=== PATIENT | male | born 1955 | race Caucasian/White ===

== ENCOUNTER → 2017-07-11 | Outpatient (CLI) | payer OTHER ==
[2017-07-11 19:15] LABS: Gliadin AB IgA, Deaminated NEGATIVE (NEGATIVE); Tis Transglutaminase IgA Unit <0.5 AI
[2017-07-11 21:03] LABS: Gliadin AB IgG, Deaminated NEGATIVE (NEGATIVE); Gliadin AB IgG, Unit <0.4 U/mL; Tis Transglutaminase IgG Unit <0.8 U/mL
== END | disposition home or self-care (01) ==
LOC: LABWHC1 13:39
PROVIDERS: ATTEND Allergy & Immunology
DX: K52.9 Noninfective gastroenteritis and colitis, unspecified (principal)
CPT/HCPCS: 36415; 82784; 83516

== ENCOUNTER → 2017-07-19 | Outpatient (CLI) | payer OTHER ==
[2017-07-19 15:52] LABS: Basophils % (A) 0 %; CH 31.7; CHCM 33.5; Eosinophils % (A) 1 %; HCT 44.1 % (39.0-53.0); HDW 2.29; HGB 14.3 gm/dL (13.0-17.5); Luc % (Auto) 2; Lymphocytes # (A) 2.1 k/uL (1.0-4.8); Lymphocytes % (A) 46 %; MCH 30.8 pg (25.0-35.0); MCHC 32.5 g/dL (31.0-37.0); MCV 94.8 fL (80.0-100.0); Mean Platelet Volume 6.7; Monocytes # (A) 0.3 k/uL (0-1.0); Monocytes % (A) 6 %; Neutrophils # (A) 2.1 k/uL (1.3-7.7); Neutrophils % (A) 45 %; RBC 4.65 m/uL (4.30-5.90); RDW 12.8 % (11.5-15.5); WBC 4.7 k/uL (3.8-10.6); WBC (Perox) 4.58
[2017-07-19 16:03] LABS: Appearance,Urine Clear (Clear); Bilirubin,Urine Negative (Negative); Glucose,Urine (UA) 3+ (Negative); Ketones,Urine Negative (Negative); Leukocyte Esterase,Urine Negative (Negative); Nitrite,Urine Negative (Negative); Protein,Urine Negative (Negative); Specific Gravity,Urine 1.024 (1.001-1.035); UA Billing (MACRO vs. MICRO) CHEM; Urobilinogen,Urine <2.0 mg/dL (<2.0)
== END | disposition home or self-care (01) ==
LOC: LABWHC1 14:59
PROVIDERS: ATTEND Allergy & Immunology
DX: R19.7 Diarrhea, unspecified (principal)
CPT/HCPCS: 36415; 81003; 82784; 82785; 84165; 85025; 86334

== ENCOUNTER 2017-08-16 10:31 | Day surgery (SDC) | payer OTHER ==
[2017-08-15 08:27] VITALS: BMI 24.3
[~2017-08-16 10:31] MED LIST: LACTATED RINGERS 1,000 ML IV SCH
[2017-08-16 10:53] VITALS: TEMP 97.6
[2017-08-16] MEDS ORDERED: LIDOCAINE 1% 20 ML VIAL (10MG/ML) FOR IV START INTRADERMA ONE (11:01)
[2017-08-16 11:08] LABS: Glucose,Whole Blood 153 mg/dL (75-99)
[2017-08-16] MEDS ORDERED: LIDOCAINE 1% INJ 10MG/ML (20 ML MDV) ONE (11:30)
[2017-08-16] MEDS ORDERED: PROPOFOL 10 MG/ML 20 ML VIAL IV ONE (11:30)
--- NOTE | 2017-08-16 11:42 | P.PCN ---
Date of Procedure: 08/16/17 Procedure(s) Performed: BRIEF HISTORY: Patient is a 62-year-old, pleasant, white male, scheduled for an upper endoscopy as a part of evaluation of chronic diarrhea for the last 6 months duration. He was diagnosed with cryptosporidiosis about 4 months ago and was treated with the antibiotics and his symptoms slowly improved. However still having diarrhea with loose bowel movements anywhere from 3-4 a day and hence repeat stool studies were done which were negative he did have a colonoscopy done in [facility] in July 2079 was normal. Because of the persistent symptoms he scheduled for an upper endoscopy with small bowel biopsies to evaluate for small bowel pathology.. PROCEDURE PERFORMED: Esophagogastroduodenoscopy with biopsy. PREOPRATIVE DIAGNOSIS: Chronic diarrhea. IV sedation per anesthesia. PROCEDURE: After informed consent was obtained, the patient was brought into the endoscopy unit. IV sedation was administered by Anesthesia under continuous monitoring. Initially the Olympus GIF-140 video endoscope was inserted into the mouth. Esophagus intubated without any difficulty. It was gradually advanced into the stomach and duodenum and carefully examined. The bulb and the second part of the duodenum appeared normal. Multiple biopsies were done from the duodenum to rule out celiac disease. The scope at this time was withdrawn to the stomach, adequately insufflated with air, and upon careful examination, mucosa of the antrum, had mild patchy areas of erythema and biopsies were done from this area. The body, cardia and the fundus appeared normal. The scope was then withdrawn into the esophagus. The GE junction was located at 39 cm from the incisors. The esophagus appeared normal. There were no erosions or ulcerations seen and the patient tolerated the procedure well. IMPRESSION: 1. Mild antral gastritis. 2. Small hiatal hernia. RECOMMENDATIONS: The findings of this examination were discussed with the patient as well as his family. He was advised to follow with biopsy results. He'll be seen in the office in 2-3 weeks. In the meantime he will continue with Imodium as needed..
[2017-08-16 12:29] VITALS: BP 131/69; PULSE 71; RESP 15
== END 2017-08-16 12:32 | disposition home or self-care (01) ==
LOC: ORWHC2ENDO 10:31
PROVIDERS: ATTEND Internal Medicine Gastroenterology
DX: K29.50 Unspecified chronic gastritis without bleeding (principal); K52.9 Noninfective gastroenteritis and colitis, unspecified; K44.9 Diaphragmatic hernia without obstruction or gangrene; E78.5 Hyperlipidemia, unspecified; E11.9 Type 2 diabetes mellitus without complications; Z79.899 Other long term (current) drug therapy; E07.9 Disorder of thyroid, unspecified; Z79.82 Long term (current) use of aspirin; Z79.84 Long term (current) use of oral hypoglycemic drugs
CPT/HCPCS: 88305; 88342; 43239; J2001; J2704

== ENCOUNTER → 2018-05-28 | Outpatient (CLI) | payer OTHER ==
[2018-05-28 09:03] LABS: Cholesterol 124 mg/dL (<200); HDL Cholesterol 35 mg/dL (40-60); LDL Cholesterol,Calculated 37 mg/dL (0-99); Triglycerides 258 mg/dL (<150)
[2018-05-28 19:43] LABS: Hemoglobin A1C 8.4 % (4.0-6.0)
== END | disposition home or self-care (01) ==
LOC: LABWHC1 07:58
PROVIDERS: ATTEND General Practice
DX: E11.9 Type 2 diabetes mellitus without complications (principal); E78.5 Hyperlipidemia, unspecified
CPT/HCPCS: 36415; 80061; 83036

== ENCOUNTER 2019-03-28 12:04 | Observation (INO) | payer OTHER ==
--- NOTE | 2019-03-28 12:53 | ED ---
General Adult HPI - General Chief complaint: Neuro Symptoms/Deficit Stated complaint: Rt side numbness Time Seen by Provider: 03/28/19 12:22 Source: patient, family, RN notes reviewed Mode of arrival: ambulatory Limitations: no limitations - History of Present Illness Initial comments: Chief complaint history of present illness this is a 63-year-old male here for complaint of pain and funny feeling or numbness from the right side of his neck down his right arm to his right side of his chest. This started at approximately 10 AM. Initially he had difficulty pinching his fingers or picking something up at his since resolved. He is able to do anything with good pharmaceutical scientist at this time. Does have discomfort when he moves his neck or moves her shoulder. Denies any injury or trauma. Does have a past history of cervical disc disease. Never had any strokes or TIAs in the past. States his blood pressure and diabetes may be out of control. - Related Data Home Medications Medication Instructions Recorded Confirmed Escitalopram [Lexapro] 10 mg PO DAILY 08/15/17 03/28/19 Ezetimibe/Simvastatin [Vytorin 1 tab PO DAILY 08/15/17 03/28/19 10-20 mg Tablet] Glimepiride [Amaryl] 2 mg PO DAILY 08/15/17 03/28/19 Levothyroxine Sodium [Synthroid] 50 mcg PO DAILY 08/15/17 03/28/19 Multivitamins, Thera [Multivitamin 1 tab PO DAILY 08/15/17 03/28/19 (formulary)] metFORMIN HCL 1,000 mg PO BID 08/15/17 03/28/19 traZODone HCL 50 mg PO HS 08/15/17 03/28/19 ALPRAZolam [Xanax] 0.5 mg PO HS PRN 03/28/19 03/28/19 Cholecalciferol [Vitamin D3 (25 1,000 unit PO DAILY 03/28/19 03/28/19 Mcg = 1000 Iu)] Cinnamon Bark [Cinnamon] 500 mg PO DAILY 03/28/19 03/28/19 Dicyclomine [Bentyl] 10 mg PO TID PRN 03/28/19 03/28/19 Loratadine [Claritin] 10 mg PO DAILY 03/28/19 03/28/19 Meclizine [Antivert] 6.25 mg PO DAILY PRN 03/28/19 03/28/19 Allergies Allergy/AdvReac Type Severity Reaction Status Date / Time No Known Allergies Allergy Verified 03/28/19 12:57 Review of Systems ROS Statement: Those systems with pertinent positive or pertinent negative responses have been documented in the HPI. Review of systems; patient denies headache at this time though he did have discomfort to the right side of his face denies any visual acuity changes he has discomfort with movement of the right side of his neck. States he has discomfort with movement of his right shoulder and arm. A funny sensation but he has full range of motion good pharmaceutical scientist bilaterally. This is significantly better than it was at 10 AM when he first noticed it. Patient denies any chest pain or shortness of breath no GI/ complaints or problems. All systems are reviewed. Past medical problems significant for elevated blood sugar which he takes pills only. Patient's had cervical spine surgery twice. Denies any family history for any cancers. Denies any ALLERGIES, nonsmoker rarely drinks alcohol. ROS Other: All systems not noted in ROS Statement are negative. Past Medical History Past Medical History: Diabetes Mellitus, Hyperlipidemia, Thyroid Disorder Additional Past Medical History / Comment(s): diarrhea and stomach cramps, History of Any Multi-Drug Resistant Organisms: None Reported Additional Past Surgical History / Comment(s): deviated septus, neck fusion Past Anesthesia/Blood Transfusion Reactions: Motion Sickness Smoking Status: Never smoker - Past Family History Mother Family Medical History: No Reported History General Exam - General Exam Comments Initial Comments: General: The patient is awake and alert, here because he had pain on the right arm and the right side of his neck and TIA type symptoms which have resolved over the past 2 to 3 hours. Patient's vital signs Eye: Pupils are equal, round and reactive to light, extra-ocular movements are intact; there is normal conjunctiva bilaterally. No signs of icterus. Ears, nose, mouth and throat: There are moist mucous membranes and no oral lesions. Neck: has chronic right-sided neck pain. Past history of 2 surgeries for disc disease. Cardiovascular: There is a regular rate and rhythm. No murmur, rub or gallop is appreciated. Respiratory: Lungs are clear to auscultation, respirations are non-labored, breath sounds are equal. No wheezes, stridor, rales, or rhonchi. Gastrointestinal: Soft, non-distended, non-tender abdomen without masses or organomegaly noted. There is no rebound or guarding present. No CVA tenderness. Bowel sounds are unremarkable. Back: There is no tenderness to palpation in the midline. There is no obvious defor mity. No rashes noted. Musculoskeletal: Normal ROM, no tenderness, There is no pedal edema. There is no calf tenderness or swelling. Sensation intact. Pulses equal bilaterally 2+. Neurological: CN II-XII intact, There are no obvious motor or sensory deficits. Coordination appears grossly intact. Speech is normal. Neuro intact. Slight problem with fingertip to nose with his right index finger. Stands without difficulty. No drift equal project analyst bilaterally Skin: Skin is warm and dry and no rashes or lesions are noted. Psychiatric: Cooperative, appropriate mood & affect, normal judgment. Limitations: no limitations Course Vital Signs 03/28/19 12:33 Temperature 97.9 F Pulse Rate 82 Respiratory 18 Rate Blood Pressure 159/84 O2 Sat by Pulse 98 Oximetry EKG Findings - EKG Comments: EKG Findings:: EKG was done and reviewed at 1311 showing normal sinus rhythm with nonspecific ST-T wave changes no acute ST elevation. Rate 67 LA interval was 186 QRS S was [address] Callahan Medical Decision Making - Medical Decision Making Medical decision making; is a 63-year-old male here with a complaint of acute onset of pain and weakness to his right arm noticed at 10 AM. It is 99% gone at this time except for pain. Pain increases with movement of his neck. No injuries lately. By does have a long history of cervical spine problems. Chest x-ray was done and reviewed by radiologist his impression is no evidence for infiltrate. No evidence for atelectasis. Scattered senescent parenchymal changes noted. Hyperinflation compatible with COPD. Heart size is stable. As read by Dr. Braden Laboratory white count of 5.4 hemoglobin 15 hematocrit 45 with potassium 4.5. INR 0.9. Blood glucose 161, troponin less than 0.012. Kidney function within normal limits. CT of the brain and cervical spine was done and reviewed by radiologist his impression is #1 there is no acute fracture or dislocation evident in the cervical spine. #2 no acute intracranial hemorrhage, mass effect, or midline shift seen. As read by Dr. Ivy The patient's condition continues to improve significantly. Minimal to no numbness. No evidence of any ataxia. No headache. The case discussed Dr. Koch, on-call hospitalist. Patient admitted his service with consultation from neurology. The patient was given aspirin while in emergency room. The case discussed with Dr. Koch, on-call hospitalist patient be admitted to his service with consultation from neurology. The patient did receive aspirin while in emergency room - Lab Data Result diagrams: 03/28/19 13:00 03/28/19 13:00 Lab Results 03/28/19 03/28/19 03/28/19 Range/Units 13:00 13:00 13:00 WBC 5.4 (3.8-10.6) k/uL RBC 4.78 (4.30-5.90) m/uL Hgb 15.4 (13.0-17.5) gm/dL Hct 45.0 (39.0-53.0) % MCV 94.2 (80.0-100.0) fL MCH 32.2 (25.0-35.0) pg MCHC 34.2 (31.0-37.0) g/dL RDW 13.1 (11.5-15.5) % Plt Count 243 (150-450) k/uL Neutrophils % 47 % Lymphocytes % 40 % Monocytes % 6 % Eosinophils % 2 % Basophils % 1 % Neutrophils # 2.6 (1.3-7.7) k/uL Lymphocytes # 2.2 (1.0-4.8) k/uL Monocytes # 0.3 (0-1.0) k/uL Eosinophils # 0.1 (0-0.7) k/uL Basophils # 0.0 (0-0.2) k/uL PT 10.1 (9.0-12.0) sec INR 0.9 (<1.2) APTT 22.0 (22.0-30.0) sec Sodium 139 (137-145) mmol/L Potassium 4.5 (3.5-5.1) mmol/L Chloride 101 (98-107) mmol/L Carbon Dioxide 27 (22-30) mmol/L Anion Gap 11 mmol/L BUN 18 (9-20) mg/dL Creatinine 0.92 (0.66-1.25) mg/dL Est GFR (CKD-EPI)AfAm >90 (>60 ml/min/1.73 sqM) Est GFR (CKD-EPI)NonAf 88 (>60 ml/min/1.73 sqM) Glucose 161 H (74-99) mg/dL Calcium 9.9 (8.4-10.2) mg/dL Total Bilirubin 0.4 (0.2-1.3) mg/dL AST 25 (17-59) U/L ALT 37 (21-72) U/L Alkaline Phosphatase 42 (38-126) U/L Troponin I (0.000-0.034) ng/mL Total Protein 7.4 (6.3-8.2) g/dL Albumin 4.4 (3.5-5.0) g/dL 03/28/19 Range/Units 13:00 WBC (3.8-10.6) k/uL RBC (4.30-5.90) m/uL Hgb (13.0-17.5) gm/dL Hct (39.0-53.0) % MCV (80.0-100.0) fL MCH (25.0-35.0) pg MCHC (31.0-37.0) g/dL RDW (11.5-15.5) % Plt Count (150-450) k/uL Neutrophils % % Lymphocytes % % Monocytes % % Eosinophils % % Basophils % % Neutrophils # (1.3-7.7) k/uL Lymphocytes # (1.0-4.8) k/uL Monocytes # (0-1.0) k/uL Eosinophils # (0-0.7) k/uL Basophils # (0-0.2) k/uL PT (9.0-12.0) sec INR (<1.2) APTT (22.0-30.0) sec Sodium (137-145) mmol/L Potassium (3.5-5.1) mmol/L Chloride (98-107) mmol/L Carbon Dioxide (22-30) mmol/L Anion Gap mmol/L BUN (9-20) mg/dL Creatinine (0.66-1.25) mg/dL Est GFR (CKD-EPI)AfAm (>60 ml/min/1.73 sqM) Est GFR (CKD-EPI)NonAf (>60 ml/min/1.73 sqM) Glucose (74-99) mg/dL Calcium (8.4-10.2) mg/dL Total Bilirubin (0.2-1.3) mg/dL AST (17-59) U/L ALT (21-72) U/L Alkaline Phosphatase (38-126) U/L Troponin I <0.012 (0.000-0.034) ng/mL Total Protein (6.3-8.2) g/dL Albumin (3.5-5.0) g/dL Disposition Clinical Impression: Transient ischemic attack Disposition: ADMITTED IP TO THIS HOSP Condition: Fair Referrals: James Maria MD [Primary Care Provider] - 1-2 days
[2019-03-28 13:30] LABS: Basophils % (A) 1 %; Eosinophils # (A) 0.1 k/uL (0-0.7); Eosinophils % (A) 2 %; HGB 15.4 gm/dL (13.0-17.5); Lymphocytes # (A) 2.2 k/uL (1.0-4.8); Lymphocytes % (A) 40 %; MCH 32.2 pg (25.0-35.0); MCHC 34.2 g/dL (31.0-37.0); MCV 94.2 fL (80.0-100.0); Mean Platelet Volume 6.6; Monocytes # (A) 0.3 k/uL (0-1.0); Monocytes % (A) 6 %; Neutrophils # (A) 2.6 k/uL (1.3-7.7); Neutrophils % (A) 47 %; Platelet Count 243 k/uL (150-450); RBC 4.78 m/uL (4.30-5.90); RDW 13.1 % (11.5-15.5); WBC 5.4 k/uL (3.8-10.6)
[2019-03-28 13:41] LABS: INR 0.9 (<1.2); Prothrombin Time 10.1 sec (9.0-12.0)
--- NOTE | 2019-03-28 14:03 | XR ---
EXAMINATION TYPE: XR chest 2V DATE OF EXAM: 03/28/2019 COMPARISON: NONE HISTORY: Shortness of breath TECHNIQUE: Frontal and lateral views of the chest are obtained. FINDINGS: Scattered senescent parenchymal changes noted. Hyperinflation compatible with COPD. No evidence for infiltrate. No evidence for atelectasis. Heart size is stable. Mediastinal structures are stable and grossly unremarkable. No evidence for hilar prominence. Degenerative changes dorsal spine. IMPRESSION: 1. No evidence for acute pulmonary disease.
[2019-03-28 14:29] LABS: ALT 37 U/L (21-72); AST 25 U/L (17-59); African American GFR (CKD) >90 (>60 ml/min/1.73 sqM); Albumin 4.4 g/dL (3.5-5.0); Alkaline Phosphatase 42 U/L (38-126); Anion Gap 11 mmol/L; Blood Urea Nitrogen 18 mg/dL (9-20); Calcium 9.9 mg/dL (8.4-10.2); Carbon Dioxide 27 mmol/L (22-30); Chloride 101 mmol/L (98-107); Glucose 161 mg/dL (74-99); Potassium 4.5 mmol/L (3.5-5.1); Sodium 139 mmol/L (137-145); Total Bilirubin 0.4 mg/dL (0.2-1.3); Total Protein 7.4 g/dL (6.3-8.2)
[2019-03-28] MEDS ORDERED: ASPIRIN 325 MG TAB PO STA (15:16)
--- NOTE | 2019-03-28 15:32 | CT ---
EXAMINATION TYPE: CT brain mark wells DATE OF EXAM: 03/28/2019 COMPARISON: HISTORY: Right sided numbness and pain today. CT DLP: 1461.6 mGycm Automated exposure control for dose reduction was used. TECHNIQUE: CT scan of the head and cervical spine are performed without contrast. FINDINGS: There is no acute intracranial hemorrhage, mass effect, or midline shift identified. The ventricles and sulci are within normal limits in size. The globes are intact and the visualized sin uses are clear. Cervical spine is visualized in its entirety from C1 through upper thoracic levels and demonstrates s atisfactory alignment without evidence of acute fracture or dislocation. Prevertebral soft tissue ap pears within normal limits. Patient is status post anterior cervical fusion and discectomy at C5-6, e xtensive endplate irregularities present at C5-6. There is anterolisthesis grade 1 C3-4, retrolisthes is grade 1 C5-6. Multilevel spondylosis. Loss of disc height present at C4-5 where there is likely be en prior fusion and also loss of disc height C6-7 C5-6. The C1-C2 articulation is unremarkable. The re is multilevel facet arthropathy, foraminal encroachment due to uncovertebral joint hypertrophy. IMPRESSION: 1. There is no acute fracture or dislocation evident in the cervical spine. 2. No acute intracranial hemorrhage, mass effect, or midline shift is seen.
[2019-03-28] MEDS ORDERED: ACETAMINOPHEN TAB 325 MG TAB PO PRN (16:05)
[2019-03-28] MEDS ORDERED: NALOXONE 0.4 MG/ML 1 ML VIAL IV PRN (16:05)
[2019-03-28] MEDS ORDERED: MECLIZINE 12.5 MG TAB PO PRN (16:10)
[2019-03-28] MEDS ORDERED: ALPRAZolam 0.5 MG TAB PO PRN (16:10)
[2019-03-28] MEDS ORDERED: DICYCLOMINE 10 MG CAP PO PRN (16:10)
[2019-03-28] MEDS: SODIUM CHLORIDE 0.9% 1,000 ML IV SCH (17:09)
--- NOTE | 2019-03-28 17:50 | P.CNNES ---
History of Present Illness Consult date: 03/28/19 Requesting physician: Yobani Callahan Reason for Consult: TIA Chief complaint: Right facial, arm and truncal numbness and hand clumsiness History of Present Illness: This is a 63 RH male whose vascular risk factors are advancing age, HTN, DM and HL. He also has chronic neck pain s/p multiple surgeries. This morning around 10am, he had abrupt onset of right lower facial, neck, arm, chest and back nu mbness. He also developed clumsiness while using his right fingers that are his dominant side. His symptoms did improve over time, but he is still numb in the same areas. His manual dexterity has improved. Denies head/neck trauma, cervical radicular symptoms or Lhermitte's. Does not normally take any antiplatelets or anticoagulants. Review of Systems 14-point ROS performed and as per HPI. Neurologically, patient denies decreased level or loss of consciousness, headache, seizure, changes in vision, diplopia, amaurosis, changes in hearing, facial droop, ptosis, vertigo, hearing loss, tinnitus, dysarthria, dysphagia, aphasia, other focal numbness/weakness not mentioned above, tremors, bowel/bladder incontinence or ataxia. Past Medical History Past Medical History: Diabetes Mellitus, Hyperlipidemia, Thyroid Disorder Additional Past Medical History / Comment(s): diarrhea and stomach cramps, History of Any Multi-Drug Resistant Organisms: None Reported Additional Past Surgical History / Comment(s): deviated septus, neck fusion Past Anesthesia/Blood Transfusion Reactions: Motion Sickness Smoking Status: Never smoker - Past Family History Mother Family Medical History: No Reported History Medications and Allergies Home Medications Medication Instructions Recorded Confirmed Type Escitalopram [Lexapro] 10 mg PO DAILY 08/15/17 03/28/19 History Ezetimibe/Simvastatin [Vytorin 1 tab PO DAILY 08/15/17 03/28/19 History 10-20 mg Tablet] Glimepiride [Amaryl] 2 mg PO DAILY 08/15/17 03/28/19 History Levothyroxine Sodium [Synthroid] 50 mcg PO DAILY 08/15/17 03/28/19 History Multivitamins, Thera [Multivitamin 1 tab PO DAILY 08/15/17 03/28/19 History (formulary)] metFORMIN HCL 1,000 mg PO BID 08/15/17 03/28/19 History traZODone HCL 50 mg PO HS 08/15/17 03/28/19 History ALPRAZolam [Xanax] 0.5 mg PO HS PRN 03/28/19 03/28/19 History Cholecalciferol [Vitamin D3 (25 1,000 unit PO DAILY 03/28/19 03/28/19 History Mcg = 1000 Iu)] Cinnamon Bark [Cinnamon] 500 mg PO DAILY 03/28/19 03/28/19 History Dicyclomine [Bentyl] 10 mg PO TID PRN 03/28/19 03/28/19 History Loratadine [Claritin] 10 mg PO DAILY 03/28/19 03/28/19 History Meclizine [Antivert] 6.25 mg PO DAILY PRN 03/28/19 03/28/19 History Allergies Allergy/AdvReac Type Severity Reaction Status Date / Time No Known Allergies Allergy Verified 03/28/19 12:57 Physical Examination - Vital Signs Vital Signs: Vital Signs Temp Pulse Resp BP Pulse Ox 03/28/19 17:17 83 18 129/80 97 03/28/19 12:33 97.9 F 82 18 159/84 98 Intake and Output 03/28/19 03/28/19 03/28/19 06:59 14:59 22:59 Other: Weight 77.111 kg Gen NAD Pleasant and cooperative HEENT NCAT Sclera without icterus O/P clear Neck Supple No carotid bruit Cor RRR no m/r/g Lungs CTAB Abd Soft NTND +BS Ext Warm to touch No edema Neuro MS A+Ox4 Normal fluency Able to follow all commands CN PERRL VFF no APD EOMI no nystagmus or ROMULO Right V2-3 decreased to LT No facial asymmetry Masseter's symmetric Hearing intact to normal voice bilaterally Speech not dysarthric Equal elevation of palate Tongue midline Sym shrug and SCM bilaterally Motor Normal bulk/tone No pronator or leg drift No tremors Strength 5/5 sym throughout Sens Diminished to LT/temp in RUE and right trunk No neglect or extinction Coord Sensory ataxia on FTN on the right; normal on the left DTRs 2+/4 sym throughout Toes downgoing bilaterally No clonus at achilles Gait Deferred NIHSS 2- 1 for sensation and 1 for limb ataxia Results CT Head wo cont 03/28/19. Nil acute. CT C-spine wo cont 03/28/19. No acute fracture of the cervical spine. I have reviewed neuroimages myself. - Laboratory Findings CBC and BMP: 03/28/19 13:00 03/28/19 13:00 Abnormal Lab Findings: Abnormal Labs 03/28/19 13:00 Glucose 161 H Assessment and Plan Assessment: Right facial/UE/truncal numbness and right hand clumsiness- suspect lacunar-type ischemic infarct, possibly in the left thalamus. Chronic neck pain- would not be able explain his entire distribution of numbness based on localization. Vascular risk factors- HTN, DM, HL Plan: -ASA 325mg po qd -Statin therapy -Permissive HTN <220/120 until MRI results known and based on clinical course -MRI Brain -CTA Head/Neck -TTE -Stroke education given -PT/OT/SP per protocol -DVT prophylaxis: heparin SC -d/w patient/family at bedside in detail. All questions answered. Thank you for this consultation. Neurology will be available again on 03/31/19 at 8am. Time with Patient: Greater than 30 (Time spent in direct patient care, greater than 50% of which was spent in [id number] counseling and coordination of care: 70 minutes.)
[2019-03-28] MEDS: metFORMIN 500 MG TAB PO SCH (20:12)
[2019-03-28] MEDS ORDERED: traZODone HCL 50 MG TAB PO SCH (21:00)
[2019-03-28 22:06] LABS: Glucose,Whole Blood 101 mg/dL (75-99)
[2019-03-28 22:13] VITALS: BMI 25.9
--- NOTE | 2019-03-28 23:25 | CT ---
EXAMINATION TYPE: CT angio head neck with contrast and with 3-D reconstruction renderings DATE OF EXAM: 03/28/2019 HISTORY: numbness to right side of body, weakness COMPARISON: CT 03/28/2019 at 1:[address] DLP: 463.9 mGycm. Automated Exposure Control for Dose Reduction was Utilized. TECHNIQUE: CTA scan of the neck is performed with IV Contrast, patient injected with 50cc mL of Isov ue 370, axial images are obtained, coronal and sagittal reformatted images are reviewed. Three-D gilberto nstructed images are created on an independent workstation and reviewed. FINDINGS: The bilateral carotid arterial systems are widely patent, though the left proximal ICA shows mild-mod erate luminal diameter narrowing due to hard and soft plaque. The intracranial anterior circulation i s widely patent, without focal stricture or aneurysm. The bilateral vertebral arterial systems are widely patent, without significant stenoses or other abn ormalities. The intracranial posterior circulation is widely patent, without focal stricture or aneur ysm. The venous structures of the neck, and the intracranial dural venous sinuses, are widely patent. The soft tissues of the neck and the visualized intracranial/intraspinal structures are unremarkable. IMPRESSION: No significant abnormality is seen, though nonobstructive proximal LICA narrowing noted.
--- NOTE | 2019-03-28 23:36 | MR ---
EXAMINATION TYPE: MR brain wo con DATE OF EXAM: 03/28/2019 COMPARISON: CT and CTA 03/28/2019 HISTORY: Possible TIA, right sided facial numbness TECHNIQUE: Departmental standard multiplanar, multisequence MRI departmental protocol including diffu sukhi weighted imaging. FINDINGS: No definite restricted diffusion to suggest acute or subacute infarction. There is no intra-axial mass or mass effect. There are a few scattered bilateral 2 - 3 mm T2 hyperintensities within the centrum semiovale and cor katy radiata; these are nonspecific foci. The extra-axial compartment, including the vascular flow voids, are unremarkable. The middle ear cavities and mastoid sinus air cells and paranasal sinuses are clear. The skull and the orbits are unremarkable. IMPRESSION: No definite acute process.
--- NOTE | 2019-03-28 23:56 | P.HPIM ---
History of Present Illness H&P Date: 03/28/19 Chief Complaint: Right arm numbness and facial numbness on the right side. Patient is a 63-year-old male with a known history of hyperlipidemia, diabetes type 2, hypothyroidism and chronic back pain status post multiple surgeries came to ER with complaints of right arm numbness and pain and a right facial numbness which started when he woke up in the morning around 10 AM. Patient was getting out of the bed and was rolling on the bed when he suddenly developed the sympto ms. Patient was having right lower facial, neck arm and chest and back numbness. Denied any weakness of the hand. No leg weakness no numbness tingling in the leg. Patient's symptoms did improve slightly since this occurrence in the morning. But patient is still having right arm numbness. Patient came to ER for evaluation. Denied any complaints of chest pain or shortness of breath. No palpitations. Denied any recent illnesses or sick contacts. No recent strenuous exercise are injury. Patient does have a history of chronic neck pain and surgeries in 2009 and 1994 due to herniated disc. CT head and cervical spine showed no acute fracture or dislocation evident in the cervical spine. No acute intracranial hemorrhage, mass effect or midline shift seen. Chest x-ray showed no acute cardio pulmonary process. Review of Systems Constitutional: Patient denies any fever or chills . No generalized weakness or weight loss. Abdomen: Patient denied nausea vomiting and diarrhea and abdominal pain. Cardiovascular: Patient denies any chest pain or short of breath no palpitations. Respiratory: patient denied any cough is from production. No shortness of breath Neurologic: Patient does have numbness and pain like sensation of the upper righ t upper extremity and right lower face. Musculoskeletal: Patient denies any complaints of joint swelling or deformity. Skin: Negative Psychiatric: Negative Endocrine: No heat or cold intolerance. No recent weight gain. Genitourinary: No dysuria or hematuria. All other 14 point ROS negative except the above Past Medical History Past Medical History: Diabetes Mellitus, Hyperlipidemia, Thyroid Disorder Additional Past Medical History / Comment(s): diarrhea and stomach cramps, History of Any Multi-Drug Resistant Organisms: None Reported Additional Past Surgical History / Comment(s): deviated septus, neck fusion Past Anesthesia/Blood Transfusion Reactions: Motion Sickness Smoking Status: Never smoker - Past Family History Mother Family Medical History: No Reported History Medications and Allergies Home Medications Medication Instructions Recorded Confirmed Type Escitalopram [Lexapro] 10 mg PO DAILY 08/15/17 03/28/19 History Ezetimibe/Simvastatin [Vytorin 1 tab PO DAILY 08/15/17 03/28/19 History 10-20 mg Tablet] Glimepiride [Amaryl] 2 mg PO DAILY 08/15/17 03/28/19 History Levothyroxine Sodium [Synthroid] 50 mcg PO DAILY 08/15/17 03/28/19 History Multivitamins, Thera [Multivitamin 1 tab PO DAILY 08/15/17 03/28/19 History (formulary)] metFORMIN HCL 1,000 mg PO BID 08/15/17 03/28/19 History traZODone HCL 50 mg PO HS 08/15/17 03/28/19 History ALPRAZolam [Xanax] 0.5 mg PO HS PRN 03/28/19 03/28/19 History Cholecalciferol [Vitamin D3 (25 1,000 unit PO DAILY 03/28/19 03/28/19 History Mcg = 1000 Iu)] Cinnamon Bark [Cinnamon] 500 mg PO DAILY 03/28/19 03/28/19 History Dicyclomine [Bentyl] 10 mg PO TID PRN 03/28/19 03/28/19 History Loratadine [Claritin] 10 mg PO DAILY 03/28/19 03/28/19 History Meclizine [Antivert] 6.25 mg PO DAILY PRN 03/28/19 03/28/19 History Allergies Allergy/AdvReac Type Severity Reaction Status Date / Time No Known Allergies Allergy Verified 03/28/19 12:57 Physical Exam Vitals: Vital Signs Temp Pulse Resp BP Pulse Ox 03/28/19 19:31 98.4 F 69 16 137/79 96 03/28/19 17:17 83 18 129/80 97 03/28/19 12:33 97.9 F 82 18 159/84 98 Intake and Output 03/28/19 03/28/19 03/28/19 06:59 14:59 22:59 Other: Weight 77.111 kg PHYSICAL EXAMINATION: Patient is lying in the bed comfortably, no acute distress, awake alert and oriented.. HEENT: Normocephalic. Neck is supple. Pupils reactive. Nostrils clear. Oral cavity is moist. Ears reveal no drainage. Neck reveals no JVD, carotid bruits, or thyromegaly. CHEST EXAMINATION: Trachea is central. Symmetrical expansion. Lung catalan clear to auscultation and percussion. CARDIAC: Normal S1, S2 with no gallops. No murmurs ABDOMEN: Soft. Bowel sounds normal. No organomegaly. No abdominal bruits. Extremities: reveal no edema. No clubbing or cyanosis Neurologically awake, alert, oriented x3 with well-coordinated movements. No focal deficits noted Skin: No rash or skin lesions. Psychiatric: Coperative. Nonsuicidal Musculoskeletal: No joint swelling or deformity. Normal range of motion. Results CBC & Chem 7: 03/28/19 13:00 03/28/19 13:00 Labs: Abnormal Lab Results - Last 24 Hours (Table) 03/28/19 Range/Units 13:00 Glucose 161 H (74-99) mg/dL Thrombosis Risk Factor Assmnt - DVT/VTE Prophylaxis DVT/VTE Prophylaxis: Pharmacologic Prophylaxis ordered Assessment and Plan Assessment: Right upper extremity and right facial numbness. Possible lacunar infarct Chronic neck pain with history of multiple neck surgeries. Hypertension Diabetes type 2 Hyperlipidemia Next and Plan: Patient will be continued on aspirin and statins. Permissive hypertension due to acute CVA. MRI of the brain and CTA head and neck was ordered. TTE was ordered. Neurology is following. Further recommendations based on the clinical course. Discussed with his son at bedside in detail. Time with Patient: Greater than 30
[2019-03-29 04:39] LABS: Cholesterol 111 mg/dL (<200); HDL Cholesterol 23 mg/dL (40-60); LDL Cholesterol,Calculated 42 mg/dL (0-99); Triglycerides 230 mg/dL (<150)
[2019-03-29 04:54] VITALS: RESP 16
[2019-03-29 06:04] LABS: Glucose,Whole Blood 129 mg/dL (75-99)
[2019-03-29] MEDS: metFORMIN 500 MG TAB PO SCH (06:06)
[2019-03-29] MEDS ORDERED: LEVOTHYROXINE 50 MCG TAB PO SCH (06:30)
[2019-03-29] MEDS ORDERED: GLIMEPIRIDE 2 MG TAB PO SCH (09:00)
[2019-03-29] MEDS ORDERED: EZETIMIBE 10 MG TAB PO SCH (09:00)
[2019-03-29] MEDS ORDERED: ESCITALOPRAM 10 MG TAB PO SCH (09:00)
[2019-03-29] MEDS ORDERED: ASPIRIN 325 MG TAB PO SCH (09:00)
[2019-03-29] MEDS ORDERED: ATORVASTATIN 10 MG TAB PO SCH (09:00)
[2019-03-29 10:49] VITALS: PULSE 75
[2019-03-29 11:48] LABS: Glucose,Whole Blood 310 mg/dL (75-99)
[2019-03-29 14:45] VITALS: BP 125/73; TEMP 98.1
[2019-03-29 17:10] LABS: Glucose,Whole Blood 112 mg/dL (75-99)
[2019-03-29] MEDS: SODIUM CHLORIDE 0.9% 1,000 ML IV SCH (17:11)
[2019-03-29] MEDS ORDERED: INSULIN ASPART (NovoLOG) 100 UNIT/ML VIAL SQ SCH (17:30)
--- NOTE | 2019-03-30 08:07 | ECHOF ---
Referral Reason:CVA MEASUREMENTS -------- HEIGHT: 175.3 cm WEIGHT: 79.8 kg BP: 116/72 RVIDd: 3.4 cm (< 3.3) IVSd: 1.3 cm (0.6 - 1.1) LVIDd: 4.2 cm (3.9 - 5.3) LVPWd: 1.3 cm (0.6 - 1.1) IVSs: 1.7 cm LVIDs: 3.2 cm LVPWs: 1.9 cm LA Diam: 3.9 cm (2.7 - 3.8) LAESV Index (A-L): 24.47 ml/m Ao Diam: 3.1 cm (2.0 - 3.7) AV Cusp: 2.4 cm (1.5 - 2.6) MV EXCURSION: 22.169 mm (> 18.000) MV EF SLOPE: 46 mm/s (70 - 150) EPSS: 0.7 cm MV E Saturnino: 0.87 m/s MV DecT: 270 ms MV A Saturnino: 1.29 m/s MV E/A Ratio: 0.68 AR PHT: 686 ms RAP: 5.00 mmHg RVSP: 25.29 mmHg FINDINGS -------- Sinus rhythm. This was a technically good study. The left ventricular size is normal. There is mild concentric left ventricular hypertrophy. Overa ll left ventricular systolic function is normal with, an EF between 60 - 65 %. The right ventricle is mildly enlarged. Normal LA size by volume 22+/-6 ml/m2. The right atrium is normal in size. Interatrial and interventricular septum intact. Trace to mild aortic regurgitation. The mitral valve is normal. Mild tricuspid regurgitation present. Right ventricular systolic pressure is normal at < 35 mmHg. Trace/mild (physiologic) pulmonic regurgitation. The aortic root size is normal. IVC Not well visulized. There is no pericardial effusion. CONCLUSIONS -------- 1. Sinus rhythm. 2. This was a technically good study. 3. The left ventricular size is normal. 4. There is mild concentric left ventricular hypertrophy. 5. Overall left ventricular systolic function is normal with, an EF between 60 - 65 %. 6. The right ventricle is mildly enlarged. 7. Normal LA size by volume 22+/-6 ml/m2. 8. The right atrium is normal in size. 9. Interatrial and interventricular septum intact. 10. Trace to mild aortic regurgitation. 11. The mitral valve is normal. 12. Mild tricuspid regurgitation present. 13. Right ventricular systolic pressure is normal at < 35 mmHg. 14. Trace/mild (physiologic) pulmonic regurgitation. 15. The aortic root size is normal. 16. IVC Not well visulized. 17. There is no pericardial effusion. EQUIPMENT SPECIALIST: Nilsa Flood RDCS
== END 2019-03-29 17:40 | disposition home or self-care (01) ==
LOC: EC 12:04 → 3SCARD 16:05 → 4MS4W 03-29 10:44
PROVIDERS: ADMIT Internal Medicine; ATTEND Internal Medicine
DX: R20.0 Anesthesia of skin (principal); M79.601 Pain in right arm; I10 Essential (primary) hypertension; M50.90 Cervical disc disorder, unspecified, unspecified cervical region; G89.29 Other chronic pain; M54.9 Dorsalgia, unspecified; E03.9 Hypothyroidism, unspecified; E78.5 Hyperlipidemia, unspecified; E11.9 Type 2 diabetes mellitus without complications; J44.9 Chronic obstructive pulmonary disease, unspecified; Z79.899 Other long term (current) drug therapy; Z79.84 Long term (current) use of oral hypoglycemic drugs; Z79.890 Hormone replacement therapy; Z98.1 Arthrodesis status
CPT/HCPCS: 99285; 36415; 93005; 93306; 80061; 80053; 84484; 85025; 85610; 85730; 71046; 72125; 70496; 70450; 70498; 70551; G0378 ×2; Q9967

== ENCOUNTER → 2019-04-01 | Outpatient (CLI) | payer OTHER ==
[2019-04-01 18:00] LABS: African American GFR (CKD) 91.8 (60.0-200.0); Albumin 4.5 g/dL (3.80-4.90); Albumin/Globulin Ratio 2.25 (1.60-3.17); Anion Gap 7.5 mmol/L (4.00-12.00); Calcium 9.4 mg/dL (8.7-10.3); Carbon Dioxide 28.5 mmol/L (21.6-31.8); Potassium 4.3 mmol/L (3.5-5.5); Total Bilirubin 0.4 mg/dL (0.3-1.2); Total Protein 6.5 g/dL (6.2-8.2)
[2019-04-01 18:07] LABS: T4, Free (Free Thyroxine) 1.2 ng/dL (0.80-1.80)
== END | disposition home or self-care (01) ==
LOC: LABWHC1 09:24
PROVIDERS: ATTEND Internal Medicine Endocrinology, Diabetes & Metabolism
DX: E11.65 Type 2 diabetes mellitus with hyperglycemia (principal); E29.1 Testicular hypofunction
CPT/HCPCS: 36415; 80053; 84403; 84439; 84443; 84681

== ENCOUNTER → 2019-04-15 | Outpatient (CLI) | payer OTHER | END | disposition home or self-care (01) | LOC: LABWHC1 12:33 | PROVIDERS: ATTEND Physician Assistant | DX: G45.9 Transient cerebral ischemic attack, unspecified (principal); H02.409 Unspecified ptosis of unspecified eyelid | CPT/HCPCS: 36415; 83090 ==

== ENCOUNTER → 2019-06-20 | Outpatient (CLI) | payer OTHER ==
[2019-06-20 12:42] LABS: Basophils # (A) 0.1 k/uL (0-0.2); Basophils % (A) 1 %; Eosinophils # (A) 0.1 k/uL (0-0.7); Eosinophils % (A) 1 %; HCT 43.3 % (39.0-53.0); HGB 14.7 gm/dL (13.0-17.5); Lymphocytes % (A) 40 %; MCH 31.3 pg (25.0-35.0); MCHC 33.9 g/dL (31.0-37.0); MCV 92.3 fL (80.0-100.0); Mean Platelet Volume 6.8; Monocytes # (A) 0.2 k/uL (0-1.0); Monocytes % (A) 4 %; Neutrophils # (A) 2.6 k/uL (1.3-7.7); Neutrophils % (A) 51 %; Platelet Count 256 k/uL (150-450); RBC 4.69 m/uL (4.30-5.90); RDW 13.1 % (11.5-15.5); WBC 5.1 k/uL (3.8-10.6)
--- NOTE | 2019-06-20 19:00 | NM ---
EXAMINATION TYPE: NM bone scan whole body DATE OF EXAM: 06/20/2019 COMPARISON: MRI brain 03/28/2019 HISTORY: Brain disorder G 93.9 Delayed whole-body scanning was performed following the injection of 26.1 mCi Tc 99m MDP. Images wer e acquired 3 hours post injection. Images were obtained over the head and neck and whole body imaging is performed. FINDINGS: There are small areas of focal uptake at the acromioclavicular junctions and sternoclavicular junctio ns likely degenerative in nature. Some degenerative type uptake is at the bilateral patella and withi n the left foot. There is mild increased uptake in the posterior left L5-S1 facet likely degenerative in nature. Some posterior right mid cervical spine degenerative changes present. The calvarium appears normal. No suspicious uptake or photopenic defects are evident. IMPRESSION: 1. Scattered areas of uptake more typical for degenerative changes including posterior right cervical spine posterior left lower lumbar spine and bilateral shoulders and knees. 2. Suspicious uptake within the calvarium is not evident.
== END | disposition home or self-care (01) ==
LOC: RADNMMAIN 10:01
PROVIDERS: ATTEND Psychiatry & Neurology Neurology
DX: M47.812 Spondylosis without myelopathy or radiculopathy, cervical region (principal); M47.816 Spondylosis without myelopathy or radiculopathy, lumbar region; M19.012 Primary osteoarthritis, left shoulder; M19.011 Primary osteoarthritis, right shoulder; M17.0 Bilateral primary osteoarthritis of knee; R94.02 Abnormal brain scan
CPT/HCPCS: 85025; 78306; 36415; A9503

== ENCOUNTER → 2019-08-13 | Outpatient (CLI) | payer OTHER ==
[2019-08-13 11:50] LABS: HCT 46.2 % (39.0-53.0); MCH 30.8 pg (25.0-35.0); MCHC 32.5 g/dL (31.0-37.0); MCV 94.8 fL (80.0-100.0); Mean Platelet Volume 6.4; Platelet Count 254 k/uL (150-450); RBC 4.88 m/uL (4.30-5.90); RDW 13.1 % (11.5-15.5); WBC 5.3 k/uL (3.8-10.6)
[2019-08-13 16:10] LABS: African American GFR (CKD) 81.2 (60.0-200.0); Albumin 4.6 g/dL (3.80-4.90); Albumin/Globulin Ratio 2.3 (1.60-3.17); BUN/Creat Ratio 19.09 Ratio (12.00-20.00); Calcium 9.2 mg/dL (8.7-10.3); Chol/HDL Ratio 3.73; LDL Cholesterol,Calculated 50.4 mg/dL (0.0-131.0); Potassium 4.5 mmol/L (3.5-5.5); Total Bilirubin 0.4 mg/dL (0.3-1.2); Total Protein 6.6 g/dL (6.2-8.2); VLDL Calculation 39.6 mg/dL (5.00-40.00)
[2019-08-13 17:16] LABS: Hemoglobin A1C 7.9 % (4.0-6.0)
== END | disposition home or self-care (01) ==
LOC: LABWHC1 10:28
PROVIDERS: ATTEND Internal Medicine Endocrinology, Diabetes & Metabolism
DX: E11.65 Type 2 diabetes mellitus with hyperglycemia (principal); E29.1 Testicular hypofunction
CPT/HCPCS: 36415; 80053; 80061; 82043; 82570; 83036; 84153; 84403; 84443; 85027

== ENCOUNTER → 2019-11-04 | Outpatient (CLI) | payer OTHER ==
[2019-11-04 11:13] LABS: Basophils % (A) 1 %; Eosinophils # (A) 0.1 k/uL (0-0.7); Eosinophils % (A) 2 %; HCT 50.1 % (39.0-53.0); HGB 16.2 gm/dL (13.0-17.5); Lymphocytes # (A) 2.1 k/uL (1.0-4.8); Lymphocytes % (A) 43 %; MCH 30.7 pg (25.0-35.0); MCHC 32.3 g/dL (31.0-37.0); MCV 94.9 fL (80.0-100.0); Monocytes # (A) 0.4 k/uL (0-1.0); Monocytes % (A) 7 %; Neutrophils # (A) 2.1 k/uL (1.3-7.7); Neutrophils % (A) 44 %; Platelet Count 270 k/uL (150-450); RBC 5.28 m/uL (4.30-5.90); RDW 12.9 % (11.5-15.5); WBC 4.8 k/uL (3.8-10.6)
[2019-11-04 11:33] LABS: Appearance,Urine Clear (Clear); Bilirubin,Urine Negative (Negative); Blood,Urine Negative (Negative); Color,Urine Yellow; Glucose,Urine (UA) Negative (Negative); Ketones,Urine Negative (Negative); Leukocyte Esterase,Urine Negative (Negative); Nitrite,Urine Negative (Negative); Protein,Urine Negative (Negative); Specific Gravity,Urine 1.016 (1.001-1.035); Urobilinogen,Urine <2.0 mg/dL (<2.0)
[2019-11-04 17:39] LABS: African American GFR (CKD) 73.1 (60.0-200.0); Albumin 4.6 g/dL (3.80-4.90); Albumin/Globulin Ratio 2.09 (1.60-3.17); Anion Gap 11.6 mmol/L (4.00-12.00); BUN/Creat Ratio 20.83 Ratio (12.00-20.00); Bilirubin, Conjugated 0.2 mg/dL (0.20-0.40); Bilirubin,Unconjugated 0.6 mg/dL; Calcium 9.7 mg/dL (8.7-10.3); Carbon Dioxide 29.4 mmol/L (21.6-31.8); Chol/HDL Ratio 4.66; Globulin 2.2 g/dL (1.6-3.3); LDL Cholesterol,Calculated 67.6 mg/dL (0.0-131.0); Non-African American GFR(CKD) 63.1 (60.0-200.0); Potassium 4.6 mmol/L (3.5-5.5); Total Bilirubin 0.8 mg/dL (0.2-1.2); Total Protein 6.8 g/dL (6.2-8.2); VLDL Calculation 71.4 mg/dL (5.00-40.00)
[2019-11-04 20:18] LABS: Hemoglobin A1C 7.9 % (4.0-6.0)
== END | disposition home or self-care (01) ==
LOC: LABWHC1 10:17
PROVIDERS: ATTEND Psychiatry & Neurology Vascular Neurology
DX: Z00.00 Encounter for general adult medical examination without abnormal findings (principal); I63.422 Cerebral infarction due to embolism of left anterior cerebral artery; I65.23 Occlusion and stenosis of bilateral carotid arteries; E78.2 Mixed hyperlipidemia; E11.9 Type 2 diabetes mellitus without complications
CPT/HCPCS: 36415; 80053; 80061; 81003; 82248; 83036; 85025

== ENCOUNTER → 2020-11-08 | Outpatient (CLI) | payer MEDICARE ==
--- NOTE | 2020-11-10 08:24 | MR ---
EXAMINATION TYPE: MR shoulder RT wo con DATE OF EXAM: 11/08/2020 COMPARISON: Outside radiograph 10/26/2020 HISTORY: 65-year-old male M25.511, right shoulder pain. TECHNIQUE: Multiplanar, multisequence imaging of the right shoulder is performed without contrast. FINDINGS: Long head biceps tendon appears grossly intact. Mild tenosynovial fluid along the bicipital groove. Heterogeneous signal throughout the subscapularis tendon with an articular sided tear involving the i nferior third fibers measuring 7 mm long and 4 mm craniocaudal. The majority of the subscapularis ten don remains intact. Diffuse heterogeneity of both supraspinatus and infraspinatus tendons. Extensive bursal sided fraying is present throughout. Centered at the mid supraspinatus tendon, there is a high-grade bursal sided tear measuring 1.1 cm el ongated 9 mm AP. A few articular sided fibers seem to remain intact. In addition, there is a second bursal sided tear involving the infraspinatus tendon more posteriorly measuring 8 mm long and 6 mm AP. The tear involves just over 50% of the tendon thickness. No atrophy of the rotator cuff musculature. Mild effusion within the subacromial/subdeltoid bursa. Moderate degenerative change of the acromioclavicular joint with capsular hypertrophy and inferior sp urring which approaches the underlying cuff both without significant mass effect. The glenohumeral joint is intact. No significant joint effusion. There is scattered mild superficial irregular cartilage thinning. No discrete labral tear given nonarthrographic technique and no paralabral cyst. No Hill-Sachs deformity or os acromiale. Patchy red marrow is present which can be seen in the settin g of anemia, obesity, smoking, and chronic disease. IMPRESSION: 1. Diffuse rotator cuff tendinosis with bursal sided fraying throughout. There is a high-grade bursal sided tear of the mid supraspinatus tendon measuring 11 x 9 mm. Only a view articular sided fibers s eem to remain intact here. 2. A second, smaller bursal sided tear involving the infraspinatus tendon more posteriorly measuring 8 x 6 mm. The tear involves just over 50% of the tendon thickness. 3. Articular sided tear of the inferior third subscapularis tendon measuring 7 x 4 mm. The majority o f the subscapularis tendon remains intact. 4. Moderate AC joint OA. Scattered mild superficial irregular cartilage thinning within the glenohume ral joint.
== END | disposition home or self-care (01) ==
LOC: RADMRIMAIN 09:10
PROVIDERS: ATTEND Orthopaedic Surgery
DX: M19.011 Primary osteoarthritis, right shoulder (principal); M67.813 Other specified disorders of tendon, right shoulder; M94.8X1 Other specified disorders of cartilage, shoulder; M75.101 Unspecified rotator cuff tear or rupture of right shoulder, not specified as traumatic

== ENCOUNTER → 2020-11-22 | Outpatient (CLI) | payer MEDICARE ==
[2020-11-22 17:15] LABS: Hemoglobin A1C 8.3 % (4.0-6.0)
== END | disposition home or self-care (01) ==
LOC: LABWHC1 09:45
PROVIDERS: ATTEND Internal Medicine Endocrinology, Diabetes & Metabolism
DX: E11.65 Type 2 diabetes mellitus with hyperglycemia (principal); E29.1 Testicular hypofunction
CPT/HCPCS: 36415; 83036; 84403

== ENCOUNTER → 2020-11-22 | Outpatient (CLI) | payer MEDICARE ==
[2020-11-22 10:46] LABS: Basophils % (A) 1 %; Eosinophils # (A) 0.1 k/uL (0-0.7); Eosinophils % (A) 1 %; HCT 46.1 % (39.0-53.0); HGB 15.8 gm/dL (13.0-17.5); Lymphocytes # (A) 2.3 k/uL (1.0-4.8); Lymphocytes % (A) 39 %; MCH 32.5 pg (25.0-35.0); MCHC 34.2 g/dL (31.0-37.0); MCV 94.9 fL (80.0-100.0); Monocytes # (A) 0.3 k/uL (0-1.0); Monocytes % (A) 5 %; Neutrophils # (A) 3.1 k/uL (1.3-7.7); Neutrophils % (A) 53 %; Platelet Count 220 k/uL (150-450); RBC 4.86 m/uL (4.30-5.90); RDW 12.4 % (11.5-15.5); WBC 5.8 k/uL (3.8-10.6)
[2020-11-22 11:03] LABS: Potassium 4.2 mmol/L (3.5-5.1)
== END | disposition home or self-care (01) ==
LOC: LABPAT 09:41
PROVIDERS: ATTEND Orthopaedic Surgery
DX: M75.41 Impingement syndrome of right shoulder (principal)
CPT/HCPCS: 80051; 85025; 93005

== ENCOUNTER 2020-11-29 05:46 | Day surgery (SDC) | payer MEDICARE ==
[2020-11-23 17:27] VITALS: BMI 25.7
--- NOTE | 2020-11-28 11:08 | HP ---
HISTORY AND PHYSICAL DATE OF SURGERY: 11/29/2020 HISTORY OF PRESENT ILLNESS: Francis Cota is a 65-year-old gentleman seen with progressive right shoulder pain. After treatment options were discussed, he chosen right shoulder arthroscopy. Consent was obtained. PAST MEDICAL HISTORY: [id number] diabetes, hypothyroidism. PAST SURGICAL HISTORY: Cervical fusion. DAILY MEDICATIONS: Loperamide, levothyroxine, meclizine, metformin. ALLERGIES: None reported. SOCIAL HISTORY: Denies tobacco use. PHYSICAL EVALUATION OF THE RIGHT SHOULDER: Flexion 140 degrees, abduction 130 degrees, external rotation 20 degrees with pain and significant weakness. There is tenderness along the rotator cuff insertion site, anterior lateral acromion impingement positive at 90 degrees. Cross-body adduction sign is positive. Drop-arm sign is positive. Distal neurovascular exam is intact. RADIOGRAPHS: Right shoulder radiographs revealed a type 2 acromion, evidence for acromioclavicular joint osteoarthritis and cystic changes of the greater tuberosity. An MRI of the right shoulder revealed rotator cuff tear and acromioclavicular joint osteoarthritis. IMPRESSION: 1. Right shoulder impingement with rotator cuff tear. 2. Right shoulder acromioclavicular joint osteoarthritis. 3. Hypertension. 4. Hyperlipidemia. 5. Hypothyroidism. 6. [id number] diabetes. PLAN: Right shoulder arthroscopy with subacromial decompression, arthroscopic rotator cuff repair, Feroz procedure and debridement. MMODL / IJN: [id number] /
[2020-11-29] MEDS ORDERED: DEXAMETHASONE SOD PHOSPHATE 4 MG/ML 1 ML VIAL IV ONE (05:49)
[2020-11-29] MEDS ORDERED: LIDOCAINE 1% (10MG/ML) FOR IV START INTRADERMA PRN (05:49)
[2020-11-29] MEDS ORDERED: ONDANSETRON 4 MG/2 ML VIAL IVP ONE (05:49)
[2020-11-29] MEDS ORDERED: MIDAZOLAM 2 MG/2 ML VIAL IV PRN (05:49)
[2020-11-29] MEDS ORDERED: LACTATED RINGERS 1,000 ML IV SCH (05:49)
[2020-11-29] MEDS ORDERED: HYDROmorphone 0.5 MG/0.5 ML SYRINGE IVP PRN (05:49)
[2020-11-29 06:39] LABS: Glucose,Whole Blood 154 mg/dL (75-99)
[2020-11-29] MEDS ORDERED: PROPOFOL 10 MG/ML 20 ML VIAL IV ONE (07:24)
[2020-11-29] MEDS ORDERED: ePHEDrine SULFATE/0.9% NACL/PF 50 MG/5 ML SYRINGE IV ONE (07:24)
[2020-11-29] MEDS ORDERED: ROCURONIUM 10 MG/ML (5 ML VIAL) IV ONE (07:24)
[2020-11-29] MEDS ORDERED: MIDAZOLAM 2 MG/2 ML VIAL ONE (07:24)
[2020-11-29] MEDS ORDERED: ROPIVACAINE 5 MG/ML 30 ML VIAL ONE (07:24)
[2020-11-29] MEDS ORDERED: fentaNYL (PF) 50 MCG/ML 2 ML AMP ONE (07:24)
[2020-11-29] MEDS ORDERED: LIDOCAINE 1% INJ 10MG/ML (20 ML MDV) ONE (07:24)
[2020-11-29] MEDS ORDERED: DEXAMETHASONE SOD PHOSPHATE 4 MG/ML 1 ML VIAL ONE (07:24)
[2020-11-29] MEDS ORDERED: SUCCINYLCHOLINE CHLORIDE 100 MG/5 ML SYR IV ONE (07:24)
--- NOTE | 2020-11-29 09:34 | P.OP ---
Date of Procedure: 11/29/20 Preoperative Diagnosis: Right shoulder impingement Postoperative Diagnosis: 1. Right shoulder rotator cuff tear 2. Right shoulder impingement 3. Right shoulder acromioclavicular joint osteoarthritis 4. Right shoulder partial long head biceps tendon tear 5. Right shoulder superficial labral tear Procedure(s) Performed: 1. Right shoulder arthroscopic rotator cuff repair 2. Right shoulder arthroscopic subacromial decompression 3. Right shoulder arthroscopic Feroz procedure 4. Right shoulder arthroscopic biceps tenotomy 5. Right shoulder arthroscopic debridement labral tear Implants: 4Arthrex 4.75 swivel lock anchors Anesthesia: GETA, regional (Interscalene block) Surgeon: Americo Conteh Gas Transfer Operator #1: Kaz Noguera Estimated Blood Loss (ml): 11 Pathology: none sent Condition: stable Disposition: PACU Indications for Procedure: 65-year-old gentleman seen with progressive right shoulder pain. After treatment options were discussed, he elected to proceed with arthroscopy. Operative Findings: See description of procedure Description of Procedure: Patient underwent an interscalene block by department of anesthesia. The patient was then taken to the operative suite. The patient underwent a general anesthetic by the department of anesthesia. The patient was placed into a lateral position and secured. There was appropriate padding of the bony prominence. Right shoulder was then prepped and draped in normal sterile orthopedic fashion. We placed the extremity in 10 pounds of longitudinal traction. A posterior incision was now made for a posterior working portal site. The trocar and cannula were inserted into the glenohumeral joint. Arthroscopy was initiated. Spinal needle was now inserted anteriorly, to ascertain the anterior working portal site. An incision was now made in that area, a trocar was inserted followed by a probe. There was superficial tearing of the anterior superior labrum. There was partial tearing and hyperemia long head biceps tendon. There were grade 1 chondromalacia changes involving the humeral head and glenoid anteriorly. I performed an arthroscopic biceps tenotomy. I debrided that area superficial fraying of the labrum down to stable labral tissue. The residual labrum was probed and found to be stable. Instruments removed from glenohumeral joint. Utilizing the posterior working portal site, the trocar and cannula were inserted into the subacromial space. Arthroscopy initiated. I made an incision 2 fingerbreadths lateral to the acromion. I introduced my trocar followed by my ArthroCare ablator. I now began ablating thick subacromial bursal tissue, which exposed the undersurface of the anterior acromion. There was diminished subacromial space. There was a very prominent anterior acromion. A motorized bur was introduced and a subacromial decompression was performed. I also excised some osteophytes off the inferior aspect of the distal clavicle. The AC joint was visualized and noted to be fairly arthritic. The motorized bur was introduced in the anterior portal site and a Feroz procedure was performed without difficulty, decompressing the AC joint nicely. I turned my attention to the rotator cuff. There was a 2.53 cm rotator cuff tear. I debrided the margins getting down to stable tendon tissue. The defect measured approximately 3 cm at this point. It was freely mobile over the footprint. I introduced my motorized bur and abraded the footprint area, getting some petechial bleeding. I now made an accessory portal site off the lateral aspect of the acromion. I pu nched 2 holes medial for medial row fixation with the assistance of Adelfo BARNARD carefully tapping the punch with a mallet as I held the punch and the camera. I now introduced both anchors into the pre-punched holes and Adelfo BARNARD tapped them with the mallet as I held anchors and the camera. Adelfo BARNARD now screwed the anchors in place a while I held the anchor guide and camera. All 8 limbs of suture were now passed through good bites of rotator cuff tendon. I now punched 2 holes for lateral row fixation again I held the punch and camera while Adelfo BARNARD used a mallet to tap in the punch. We now passed sutures through both anchors and individually I introduced the anchors into the pre-punch holes I held the anchor guide in position with one hand holding the camera with the other hand while Adelfo BARNARD tensioned the sutures and screwed in the anchors one at a time. All residual suture limbs were now clipped. We had good compression of the tendon along the entire footprint. Instruments now removed from the portal sites. All portal sites were approximated with nylon suture. Sterile dressings were applied followed by a shoulder immobilizer. Kaz BARNARD assisted in this complex case. The patient was awakened, transferred to a bed, and taken to recovery in stable condition.
[2020-11-29 09:47] VITALS: TEMP 97.1
--- NOTE | 2020-11-29 11:02 | P.ANPRN ---
Procedure Note - Anesthesia - Nerve Block Performed Right Interscalene Single Time Out Performed: Yes Date of Procedure: 11/29/20 Procedure Start Time: 07:10 Procedure Stop Time: 07:15 Location of Patient: PreOp Indication: Acute Post-Operative Pain, Requested by Surgeon Sedation Type: Sedate with meaningful contact maintained Preparation: Sterile Prep Position: Supine Needle Types: Pajunk Needle Gauge: 21 Ultrasound used to visualize needle placement: Yes Ultrasound used to observe medication spread: Yes Blood Aspirated: No Pain Paresthesia on Injection Noted: No Resistance on Injection: Normal Image Stored and Saved: Yes Events: Uneventful and Well Tolerated (ropi .5% 20cc plus dexamethasone 4mg)
[2020-11-29] MEDS ORDERED: LACTATED RINGERS 1,000 ML IV ONE (11:45)
[2020-11-29 12:22] LABS: Glucose,Whole Blood 322 mg/dL (75-99)
[2020-11-29 12:22] LABS: Glucose,Whole Blood 275 mg/dL (75-99)
[2020-11-29 12:25] LABS: Glucose,Whole Blood 272 mg/dL (75-99)
[2020-11-29] MEDS ORDERED: INSULIN ASPART (NovoLOG) 100 UNIT/ML VIAL SQ ONE (12:29)
[2020-11-29 13:07] VITALS: BP 117/71; PULSE 90; RESP 20
== END 2020-11-29 13:21 | disposition home or self-care (01) ==
LOC: OR 05:46
PROVIDERS: ATTEND Orthopaedic Surgery
DX: M75.101 Unspecified rotator cuff tear or rupture of right shoulder, not specified as traumatic (principal); M25.811 Other specified joint disorders, right shoulder; M19.011 Primary osteoarthritis, right shoulder; M66.321 Spontaneous rupture of flexor tendons, right upper arm; S43.431A Superior glenoid labrum lesion of right shoulder, initial encounter; X58.XXXA Exposure to other specified factors, initial encounter; M94.211 Chondromalacia, right shoulder; M25.711 Osteophyte, right shoulder; E11.9 Type 2 diabetes mellitus without complications; E03.9 Hypothyroidism, unspecified; I10 Essential (primary) hypertension; E78.5 Hyperlipidemia, unspecified; F32.9 Major depressive disorder, single episode, unspecified; Z98.1 Arthrodesis status; Z98.890 Other specified postprocedural states; Z79.84 Long term (current) use of oral hypoglycemic drugs; Z79.890 Hormone replacement therapy; Z79.899 Other long term (current) drug therapy
CPT/HCPCS: 64415; 76942; 29826; 29827; 29824; C1713; J2250; J1100; J0690; J2405; J2001; J3010; J2795; J0330; J2704

== ENCOUNTER → 2021-03-17 | Outpatient (CLI) | payer MEDICARE ==
--- NOTE | 2021-03-17 09:59 | XR ---
EXAMINATION TYPE: XR chest 2V DATE OF EXAM: 03/17/2021 COMPARISON: 03/28/2019 HISTORY: Short of breath TECHNIQUE: Frontal and lateral views of the chest are obtained. FINDINGS: There is no focal air space opacity, pleural effusion, or pneumothorax seen. The cardiac silhouette size is within normal limits. The osseous structures are intact. IMPRESSION: No acute cardiopulmonary process.
[2021-03-17 14:54] LABS: HCT 41.8 % (39.6-50.0); HGB 13.4 g/dL (13.0-17.0); MCHC 32.1 g/dL (32.0-37.0); MCV 96.8 fL (80.0-97.0); Mean Platelet Volume 9.4 fL (9.5-12.2); Platelet Count 265 X 10*3/uL (140-440); RBC 4.32 X 10*6/uL (4.40-5.60); RDW 13.2 % (11.5-14.5); WBC 6.23 X 10*3/uL (4.50-10.00)
[2021-03-17 18:14] LABS: ALT 36 U/L (10-49); AST 30 U/L (14-35); African American GFR (CKD) 80.6 (60.0-200.0); Albumin/Globulin Ratio 1.83 (1.60-3.17); Alkaline Phosphatase 74 U/L (41-126); BUN/Creat Ratio 20.91 Ratio (12.00-20.00); Calcium 9.2 mg/dL (8.7-10.3); Carbon Dioxide 27.6 mmol/L (21.6-31.8); Chloride 107 mmol/L (96-109); Chol/HDL Ratio 3.81; Cholesterol 122 mg/dL (0-200); Globulin 2.4 g/dL (1.6-3.3); Glucose 164 mg/dL (70-110); LDL Cholesterol,Calculated 60.4 mg/dL (0.0-131.0); Non-African American GFR(CKD) 69.6 (60.0-200.0); Potassium 4.4 mmol/L (3.5-5.5); Sodium 142 mmol/L (135-145); Total Bilirubin 0.5 mg/dL (0.2-1.2); Total Protein 6.8 g/dL (6.2-8.2)
[2021-03-17 19:49] LABS: Hemoglobin A1C 7.6 % (4.0-6.0)
[2021-03-17 21:18] LABS: Urine Creatinine 74.5 mg/dL
== END | disposition home or self-care (01) ==
LOC: LABWHC1 09:20
PROVIDERS: ATTEND Internal Medicine Endocrinology, Diabetes & Metabolism
DX: R06.02 Shortness of breath (principal); E11.65 Type 2 diabetes mellitus with hyperglycemia; E29.1 Testicular hypofunction; E03.9 Hypothyroidism, unspecified
CPT/HCPCS: 36415; 71046; 80053; 80061; 82043; 82570; 83036; 84403; 84439; 84443; 85027; 86618

== ENCOUNTER 2021-06-25 00:07 | Emergency (ER) | payer MEDICARE ==
[2021-06-25 00:14] VITALS: BP 128/81; PULSE 86; RESP 20; TEMP 98.1
[2021-06-25] MEDS ORDERED: HYDROcodone/APAP 5-325MG 1 EACH TAB PO STA (01:49)
--- NOTE | 2021-06-25 02:41 | ED ---
Neck Injury/Pain HPI - General Chief Complaint: Neck Pain/Injury Stated Complaint: Neck Pain Time Seen by Provider: 06/25/21 01:27 Mode of arrival: wheelchair Limitations: no limitations - History of Present Illness Initial Comments: 65-year-old male with history of chronic back pain presents emergency Department with a chief complaint of neck pain. Patient reports he had 2 cervical fusions over the last 3 decades. States over the last 2 days he has been exerting himself more than usual due to a recent power outage. Patient reports over the last days noticed more strain on the left side of the neck and has slight limited range of motion with left rotation and left lateral flexion. He denies any neck stiffness or fevers or chills. Denies any paresthesias or weakness to the extremities. Denies any direct traumatic injuries to the neck itself. Denies any difficulty swallowing or breathing. Patient arrived with his own c- collar in place which he states that it relieved some of the discomfort. - Related Data Home Medications Medication Instructions Recorded Confirmed Escitalopram [Lexapro] 10 mg PO DAILY 08/15/17 11/23/20 Glimepiride [Amaryl] 4 mg PO DAILY 08/15/17 11/23/20 Levothyroxine Sodium [Synthroid] 50 mcg PO DAILY 08/15/17 11/23/20 Multivitamins, Thera [Multivitamin 1 tab PO DAILY 08/15/17 11/23/20 (formulary)] metFORMIN HCL [Glucophage] 1,000 mg PO BID 08/15/17 11/23/20 traZODone HCL 50 mg PO HS 08/15/17 11/23/20 ALPRAZolam [Xanax] 0.5 mg PO HS PRN 03/28/19 11/23/20 Cholecalciferol [Vitamin D3 (25 1,000 unit PO DAILY 03/28/19 11/23/20 Mcg = 1000 Iu)] Cinnamon Bark [Cinnamon] 500 mg PO DAILY 03/28/19 11/23/20 Dicyclomine [Bentyl] 10 mg PO TID PRN 03/28/19 11/29/20 Loratadine [Claritin] 10 mg PO DAILY 03/28/19 11/23/20 Meclizine [Antivert] 6.25 mg PO DAILY PRN 03/28/19 11/29/20 Aspirin 81 mg PO DAILY 11/23/20 11/23/20 Atorvastatin [Lipitor] 80 mg PO HS 11/23/20 11/23/20 Pioglitazone [Actos] 30 mg PO DAILY 11/23/20 11/23/20 Previous Rx's Medication Instructions Recorded HYDROcodone/APAP 7.5-325MG [[place] 1 each PO Q6HR PRN #28 tab 11/29/20 7.5] Cyclobenzaprine [Flexeril] 10 mg PO TID PRN #15 tab 06/25/21 Allergies Allergy/AdvReac Type Severity Reaction Status Date / Time No Known Allergies Allergy Verified 06/25/21 00:14 Review of Systems ROS Statement: Those systems with pertinent positive or pertinent negative responses have been documented in the HPI. ROS Other: All systems not noted in ROS Statement are negative. Past Medical History Past Medical History: Diabetes Mellitus, Hyperlipidemia, Hypertension, Musculoskeletal Disorder, Thyroid Disorder Additional Past Medical History / Comment(s): IBS, chronic neck pain History of Any Multi-Drug Resistant Organisms: None Reported Past Surgical History: Orthopedic Surgery Additional Past Surgical History / Comment(s): deviated septum, cervical fusion x2, rt rotator cuff repair Past Anesthesia/Blood Transfusion Reactions: Motion Sickness Past Psychological History: Depression Smoking Status: Never smoker Past Alcohol Use History: None Reported Past Drug Use History: None Reported - Past Family History Mother Family Medical History: No Reported History General Exam Limitations: no limitations General appearance: alert, in no apparent distress Head exam: Present: atraumatic, normocephalic, normal inspection Eye exam: Present: normal appearance, PERRL Pupils: Present: normal accommodation ENT exam: Present: normal exam, normal oropharynx, mucous membranes moist, TM's normal bilaterally, normal external ear exam Neck exam: Present: normal inspection, tenderness (Tenderness along the left paraspinal region and trapezius. No mid cervical tenderness.). Absent: full ROM (Limited range of motion with left rotation and left lateral flexion), lymphadenopathy Respiratory exam: Present: normal lung sounds bilaterally. Absent: respiratory distress, wheezes, rales, rhonchi, stridor Cardiovascular Exam: Present: regular rate, normal rhythm, normal heart sounds. Absent: systolic murmur Extremities exam: Present: normal inspection, full ROM. Absent: tenderness Back exam: Present: normal inspection, full ROM. Absent: tenderness Neurological exam: Present: alert, oriented X3 Psychiatric exam: Present: normal affect, normal mood Skin exam: Present: warm, dry, intact, normal color Course Vital Signs 06/25/21 00:10 Temperature 98.1 F Pulse Rate 86 Respiratory 20 Rate Blood Pressure 128/81 O2 Sat by Pulse 96 Oximetry Medical Decision Making - Medical Decision Making 65-year-old male with history of chronic neck pain presents to emergency Department with chief complaint of neck pain. On physical examination, he has tenderness over the left trapezius and left paraspinal region of the cervical spine. No midcervical tenderness. No direct traumatic injury but he has been exerting himself more over the last 2 days. He arrived with his own c-collar in place which according to him and helps alleviate the symptoms. He has been taking Tylenol Motrin otherwise with no significant improvement in symptoms. I gave him [place] for pain here which helped alleviate the discomfort. CT of the C-spine obtained shows old fusion surgery with no acute bony abnormality. I do suspect cervical strain to be the cause of the patient's symptoms. He does not have another focal deficits. I will discharge him with Flexeril. Also advised him to follow up with an epic cadence specialists in that region. Return parameters were discussed with patient was understanding and agreeable. Case discussed with physician. Disposition Clinical Impression: Strain of neck muscle Disposition: HOME SELF-CARE Condition: Stable Instructions (If sedation given, give patient instructions): Cervical Strain (ED) Additional Instructions: Follow-up with epic cadence specialists. Return to emergency department if sympt oms worsen. Prescriptions: Cyclobenzaprine [Flexeril] 10 mg PO TID PRN #15 tab PRN Reason: Muscle Spasm Is patient prescribed a controlled substance at d/c from ED?: No Referrals: James Maria MD [Primary Care Provider] - 1-2 days Time of Disposition: 03:19
--- NOTE | 2021-06-25 02:45 | CT ---
EXAMINATION TYPE: CT cervical spine wo con DATE OF EXAM: 06/25/2021 COMPARISON: None HISTORY: chronic pain. no recent traumatic injury CT DLP: 323.4 mGycm Automated exposure control for dose reduction was used. Images obtained from the skull base to T1 vertebra without contrast. Vertebra have normal alignment. There is old anterior fusion surgery at C5-6. The facet joints are in tact. There is no compression fracture. There is also fusion of C4-5 vertebra. Prevertebral soft tiss ues are not enlarged. There is no evidence of a fracture. I see no focal bone destruction. There is m inor spurring of the facet joints. IMPRESSION: Old fusion surgery. No acute bony abnormality.
[2021-06-25] MEDS ORDERED: CYCLOBENZAPRINE 10MG STARTER 3 TAB BTL PO STA (03:19)
== END 2021-06-25 04:05 | disposition home or self-care (01) ==
LOC: EC 00:07
DX: S16.1XXA Strain of muscle, fascia and tendon at neck level, initial encounter (principal); E11.9 Type 2 diabetes mellitus without complications; E78.5 Hyperlipidemia, unspecified; I10 Essential (primary) hypertension; F32.9 Major depressive disorder, single episode, unspecified; Z79.84 Long term (current) use of oral hypoglycemic drugs; Z79.899 Other long term (current) drug therapy
CPT/HCPCS: 72125; 99284

== ENCOUNTER → 2021-09-28 | Outpatient (CLI) | payer MEDICARE ==
--- NOTE | 2021-09-28 23:56 | MR ---
EXAMINATION TYPE: MR shoulder RT wo con DATE OF EXAM: 09/28/2021 COMPARISON: 11/08/2020 HISTORY: R shoulder pain, prior surgery Multiplanar multiecho imaging of the right shoulder without contrast. There is linear artifact related to patient's from reconstructive surgery at the greater tuberosity h umerus. The supraspinatus tendon shows no retraction. There are small areas of increased signal withi n the tendon consistent with partial tears. I do not see a definite full-thickness tear. There is no subacromial impingement. There appears to be some surgical changes at the inferior aspect of the AC j oint. The subscapularis tendon is intact. Biceps tendon is intact. The glenoid juan appear intact. There i s no evidence of any significant joint effusion. The glenohumeral joint is intact. There is no eviden ce of a fracture. IMPRESSION: There is some reconstructive surgery of the supraspinatus tendon with evidence of partial tear of the tendon or tendinitis but no evidence of a full-thickness tear. There is improvement in the subacromi al impingement on the supraspinatus tendon and muscle compared to previous exam.
== END | disposition home or self-care (01) ==
LOC: RADMRIMAIN 10:47
PROVIDERS: ATTEND Orthopaedic Surgery
DX: M75.41 Impingement syndrome of right shoulder (principal)

== ENCOUNTER → 2021-12-06 | Outpatient (CLI) | payer MEDICARE ==
[2021-12-06 15:25] LABS: ALT 35 U/L (10-49); AST 36 U/L (14-35); African American GFR (CKD) 72.1 (60.0-200.0); Albumin 4.3 g/dL (3.8-4.9); Albumin/Globulin Ratio 1.59 (1.60-3.17); Alkaline Phosphatase 55 U/L (41-126); BUN/Creat Ratio 18.67 Ratio (12.00-20.00); Blood Urea Nitrogen 22.4 mg/dL (9.0-27.0); Calcium 9.7 mg/dL (8.7-10.3); Carbon Dioxide 25.4 mmol/L (20.0-27.5); Chloride 104 mmol/L (96-109); Chol/HDL Ratio 2.47 Ratio; Globulin 2.7 g/dL (1.6-3.3); Glucose 152 mg/dL (70-110); LDL Cholesterol,Calculated 49.8 mg/dL (0.0-131.0); Non-African American GFR(CKD) 62.2 (60.0-200.0); Potassium 4.5 mmol/L (3.5-5.5); Sodium 141 mmol/L (135-145)
[2021-12-06 21:44] LABS: Microalbumin Creatinine Ratio <30 mg/g Creat (0-30); Urine Creatinine 88.4 mg/dL (39.0-259.0)
== END | disposition home or self-care (01) ==
LOC: LABWHC1 11:01
PROVIDERS: ATTEND Internal Medicine Endocrinology, Diabetes & Metabolism
DX: E11.65 Type 2 diabetes mellitus with hyperglycemia (principal)
CPT/HCPCS: 36415; 80053; 80061; 82043; 82570; 83036; 84443

== ENCOUNTER → 2022-01-11 | Outpatient (CLI) | payer MEDICARE ==
[2022-01-11 14:42] LABS: Basophils # (A) 0.02 X 10*3/uL (0.00-0.10); Basophils % (A) 0.4 %; Eosinophils # (A) 0.07 X 10*3/uL (0.04-0.35); Eosinophils % (A) 1.4 %; HCT 40.8 % (39.6-50.0); HGB 13.3 g/dL (13.0-17.0); Immature Grans, Automated 0 %; Lymphocytes # (A) 2.34 X 10*3/uL (0.90-5.00); Lymphocytes % (A) 47.2 %; MCHC 32.6 g/dL (32.0-37.0); MCV 98.1 fL (80.0-97.0); Mean Platelet Volume 9.6 fL (9.5-12.2); Monocytes # (A) 0.51 X 10*3/uL (0.20-1.00); Monocytes % (A) 10.3 %; NRBC Per 100 WBC 0 /100 WBCS (0.0-0.0); Neutrophils # (A) 2.02 X 10*3/uL (1.80-7.70); Neutrophils % (A) 40.7 %; Platelet Count 246 X 10*3/uL (140-440); RBC 4.16 X 10*6/uL (4.40-5.60); RDW 13.2 % (11.5-14.5); WBC 4.96 X 10*3/uL (4.50-10.00)
[2022-01-11 16:23] LABS: Carbon Dioxide 26.7 mmol/L (20.0-27.5); Potassium 4.2 mmol/L (3.5-5.5)
== END | disposition home or self-care (01) ==
LOC: LABPAT 09:40
PROVIDERS: ATTEND Orthopaedic Surgery
DX: Z01.812 Encounter for preprocedural laboratory examination (principal); M75.41 Impingement syndrome of right shoulder
CPT/HCPCS: 80051; 85025; 93005

== ENCOUNTER 2022-01-26 08:01 | Day surgery (SDC) | payer MEDICARE ==
[2022-01-24 14:37] VITALS: BMI 26.6
--- NOTE | 2022-01-25 14:30 | HP ---
HISTORY AND PHYSICAL DATE OF SURGERY: 01/26/2022 Francis Cota is a 66-year-old patient seen with progressive right shoulder pain. We discussed options for treatment. He elected to proceed with right shoulder arthroscopy. Consent was obtained. PAST MEDICAL HISTORY: Ptn-obsthvo-jnincofuh diabetes, hypothyroidism. PAST SURGICAL HISTORY: Shoulder arthroscopy, cervical fusion. DAILY MEDICATIONS: amide, levothyroxine, metformin, testosterone, aspirin. ALLERGIES: NONE. SOCIAL HISTORY: He denies current tobacco use. PHYSICAL EVALUATION OF THE RIGHT SHOULDER: He has previous well-healed arthroscopic portal sites. He flexes to 150, abducts to 110. External rotation is 40 with pain and weakness. Tenderness along the anterolateral acromion and rotator cuff insertion site. Impingement sign is negative. Drop-arm sign is positive. Distal neurovascular exam is intact. Radiographs of the right shoulder revealed conversion to a flat anterior acromion. MRI right shoulder revealed a partial rotator cuff tendon tear. IMPRESSION: 1. Right shoulder partial rotator cuff tear. 2. Twt-zqlxgjp-qpbrifoqw diabetes. 3. Hypothyroidism. PLAN: Right shoulder arthroscopy with rotator cuff repair and debridement. MMODL / IJN: [id number] /
[~2022-01-26 08:01] MED LIST changes: +DEXAMETHASONE SOD PHOSPHATE 4 MG/ML 1 ML VIAL IV ONE; +HYDROmorphone 0.5 MG/0.5 ML SYRINGE IVP PRN; +LIDOCAINE 1% (10MG/ML) FOR IV START INTRADERMA PRN; +MIDAZOLAM 2 MG/2 ML VIAL IV PRN; +ONDANSETRON 4 MG/2 ML VIAL IVP ONE; +ONDANSETRON 4 MG/2 ML VIAL IVP PRN
[2022-01-26] MEDS ORDERED: LIDOCAINE 1% (10MG/ML) FOR IV START INTRADERMA ONE (08:45)
[2022-01-26 08:48] LABS: Glucose,Whole Blood 129 mg/dL (75-99)
[2022-01-26] MEDS ORDERED: DEXAMETHASONE SOD PHOSPHATE 4 MG/ML 1 ML VIAL ONE (10:12)
[2022-01-26] MEDS ORDERED: PHENYLEPHRINE-0.9% NACL SYG 1,000 MCG/10 ML SYRINGE ONE (10:12)
[2022-01-26] MEDS ORDERED: SUCCINYLCHOLINE CHLORIDE 100 MG/5 ML SYR IV ONE (10:12)
[2022-01-26] MEDS ORDERED: LIDOCAINE 2% INJ 20 MG/ML (2 ML VIAL) ONE (10:12)
[2022-01-26] MEDS ORDERED: PROPOFOL 10 MG/ML 20 ML VIAL IV ONE (10:12)
[2022-01-26] MEDS ORDERED: ROPIVACAINE 5 MG/ML 30 ML VIAL ONE (10:12)
[2022-01-26] MEDS ORDERED: LACTATED RINGERS 1,000 ML IV ONE ×2 (11:07)
--- NOTE | 2022-01-26 12:05 | P.OP ---
Date of Procedure: 01/26/22 Preoperative Diagnosis: Right shoulder rotator cuff tear Postoperative Diagnosis: Right shoulder rotator cuff tear Procedure(s) Performed: Right shoulder arthroscopic rotator cuff repair Implants: 16.25 Arthrex swivel lock anchor Allograft bone dowel Anesthesia: GETA, regional (Interscalene Block) Surgeon: Americo Conteh Usability Strategist #1: Kaz Noguera Estimated Blood Loss (ml): 11 Pathology: none sent Condition: stable Disposition: PACU Indications for Procedure: 66-year-old gentleman seen with probable symptomatic right shoulder rotator cuff tear. After having treatment options discussed, he elected to proceed with arthroscopy. Operative Findings: See description of procedure Description of Procedure: Patient underwent an interscalene block by department of anesthesia. The patient was then taken to the operative suite. The patient underwent a general anesthetic by the department of anesthesia. The patient was placed into a lateral position and secured. There was appropriate padding of the bony prominence. Right shoulder was then prepped and draped in normal sterile orthopedic fashion. We placed the extremity in 10 pounds of longitudinal tracti on. A posterior incision was now made for a posterior working portal site. The trocar and cannula were inserted into the glenohumeral joint. Arthroscopy was initiated. Spinal needle was now inserted anteriorly, to ascertain the anterior working portal site. An incision was now made in that area, a trocar was inserted followed by a probe. The humeral head and glenoid appeared to reveal grade 1 chondral malacia changes with no osteochondral tears present. The labrum was stable. The biceps was stable. Instruments were now removed from glenohumeral joint. Utilizing the posterior working portal site, the trocar and cannula were inserted into the subacromial space. Arthroscopy initiated. I made an incision 2 fingerbreadths lateral to the acromion. I introduced my trocar followed by my ArthroCare ablator. I I ablated some residual bursal tissue exposing the rotator cuff tendon easily. There appeared be adequate subacromial space. The before meals joint was well decompressed. I did note a recurrent tear at the area of the previous repair site. It appeared that the tendon did not heal well back onto the footprint area. I debrided out the residual sutures. I identified the anchor. I now was carefully able to remove the anchor however this did cause a rather large defect in that previous anchor site. I debrided the margins of tendon getting down to stable tendon tissue. With the assistance of Adelfo BARNARD passed 2 everted mattress sutures through good bites of rotator cuff tendon along with a suture Stef anteriorly to help with a possible dogear. I now with assistance of Adelfo BARNARD passed all limbs of suture through the eyelet of a 6.25 Arthrex swivel lock anchor. That was placed into the prepunched hole. Adelfo BARNARD tension the sutures and I deployed the anchor. We did not have good fixation noted. I felt the anchor was now well fixated. The anchor was removed. I now applied some injectable AlloMatrix bone matrix into the defect. I also placed an allograft bone dowel into the defect to fill a defect allow some compression and stabilization of the anchor. We now again passed all limbs of suture through that eyelet of the 6.25 Arthrex swivel lock anchor. I now placed into the defect making sure all was situated between the bone dowel and the lateral wall. I held it in position while Adelfo BARNARD tensioned all 5 suture limbs and deployed the anchor. We now had excellent fixation of the anchor.. All residual suture limbs were now clipped. We had good compression of the tendon along the entire footprint. Instruments now removed from the portal sites. All portal sites were approximated with nylon suture. Sterile dressings were applied followed by a shoulder sling. Kaz BARNARD assisted in this case. The patient was awakened, transferred to a bed, and taken to recovery in stable condition.
[2022-01-26 12:06] VITALS: TEMP 97
[2022-01-26 13:06] LABS: Glucose,Whole Blood 176 mg/dL (75-99)
[2022-01-26 13:19] VITALS: RESP 16
[2022-01-26 13:51] VITALS: BP 136/82
[2022-01-26 14:09] VITALS: PULSE 80
--- NOTE | 2022-01-26 19:17 | P.ANPRN ---
Procedure Note - Anesthesia - Nerve Block Performed Right Interscalene Single Time Out Performed: Yes Date of Procedure: 01/26/22 Procedure Start Time: 08:59 Procedure Stop Time: 09:03 Location of Patient: PreOp Indication: Acute Post-Operative Pain, Requested by Surgeon Sedation Type: Sedate with meaningful contact maintained Preparation: Sterile Prep Position: Supine Needle Types: Pajunk Needle Gauge: 21 Ultrasound used to visualize needle placement: Yes Ultrasound used to observe medication spread: Yes Blood Aspirated: No Pain Paresthesia on Injection Noted: No Resistance on Injection: Normal Image Stored and Saved: Yes Events: Uneventful and Well Tolerated (ropi 0.5% 20 mL plus dexamethasone 4 mg)
== END 2022-01-26 14:20 | disposition home or self-care (01) ==
LOC: OR 08:01
PROVIDERS: ATTEND Orthopaedic Surgery
DX: M75.111 Incomplete rotator cuff tear or rupture of right shoulder, not specified as traumatic (principal); M94.211 Chondromalacia, right shoulder; E11.9 Type 2 diabetes mellitus without complications; E03.9 Hypothyroidism, unspecified; I10 Essential (primary) hypertension; E78.5 Hyperlipidemia, unspecified; F32.A Depression, unspecified; Z98.1 Arthrodesis status; Z79.84 Long term (current) use of oral hypoglycemic drugs; Z79.82 Long term (current) use of aspirin; Z79.890 Hormone replacement therapy; Z79.899 Other long term (current) drug therapy; Z98.890 Other specified postprocedural states
CPT/HCPCS: 64415; 76942; 29827; C1713 ×2; C1894; J2250; J1100; J0690; J2405; J2795; J2370; J0330; J2704; J2001

== ENCOUNTER → 2022-07-18 | Outpatient (CLI) | payer MEDICARE ==
[2022-07-18 15:58] LABS: ALT 38 U/L (10-49); AST 30 U/L (14-35); African American GFR (CKD) 89.9 (60.0-200.0); Albumin 4.4 g/dL (3.8-4.9); Albumin/Globulin Ratio 1.71 (1.60-3.17); Alkaline Phosphatase 59 U/L (41-126); Blood Urea Nitrogen 16.9 mg/dL (9.0-27.0); Calcium 9.4 mg/dL (8.7-10.3); Carbon Dioxide 27.5 mmol/L (20.0-27.5); Chloride 102 mmol/L (96-109); Chol/HDL Ratio 3.01 Ratio; Globulin 2.5 g/dL (1.6-3.3); Glucose 134 mg/dL (70-110); LDL Cholesterol,Calculated 63.9 mg/dL (0.0-131.0); Non-African American GFR(CKD) 77.5 (60.0-200.0); Potassium 4.1 mmol/L (3.5-5.5); Sodium 138 mmol/L (135-145); Total Protein 6.9 g/dL (6.2-8.2)
[2022-07-18 17:35] LABS: Microalbumin Creatinine Ratio <30 mg/g Creat (0-30)
== END | disposition home or self-care (01) ==
LOC: LABWHC1 08:31
PROVIDERS: ATTEND Internal Medicine Endocrinology, Diabetes & Metabolism
DX: E11.65 Type 2 diabetes mellitus with hyperglycemia (principal)
CPT/HCPCS: 36415; 80053; 80061; 82043; 82570; 83036; 84443

== ENCOUNTER → 2022-07-27 | Outpatient (CLI) | payer MEDICARE ==
[2022-07-27 18:26] LABS: Basophils # (A) 0.03 X 10*3/uL (0.00-0.10); Basophils % (A) 0.6 %; Eosinophils # (A) 0.07 X 10*3/uL (0.04-0.35); Eosinophils % (A) 1.4 %; HCT 42.2 % (39.6-50.0); HGB 13.6 g/dL (13.0-17.0); Immature Grans, Automated 0.2 %; Lymphocytes # (A) 2.15 X 10*3/uL (0.90-5.00); Lymphocytes % (A) 44.4 %; MCH 31.3 pg (27.0-32.0); MCHC 32.2 g/dL (32.0-37.0); MCV 97.2 fL (80.0-97.0); Mean Platelet Volume 9.8 fL (9.5-12.2); Monocytes # (A) 0.44 X 10*3/uL (0.20-1.00); Monocytes % (A) 9.1 %; NRBC Per 100 WBC 0 /100 WBCS (0.0-0.0); Neutrophils # (A) 2.14 X 10*3/uL (1.80-7.70); Neutrophils % (A) 44.3 %; Platelet Count 246 X 10*3/uL (140-440); RBC 4.34 X 10*6/uL (4.40-5.60); RDW 13.3 % (11.5-14.5); WBC 4.84 X 10*3/uL (4.50-10.00)
[2022-07-27 18:39] LABS: Anion Gap 9.4 mmol/L (10.00-18.00); Potassium 4.5 mmol/L (3.5-5.5)
== END | disposition home or self-care (01) ==
LOC: LABPAT 12:17
PROVIDERS: ATTEND Orthopaedic Surgery
DX: Z01.812 Encounter for preprocedural laboratory examination (principal); M23.91 Unspecified internal derangement of right knee
CPT/HCPCS: 80051; 85025; 93005

== ENCOUNTER 2022-08-10 12:37 | Day surgery (SDC) | payer MEDICARE ==
--- NOTE | 2022-08-10 01:07 | HP ---
HISTORY AND PHYSICAL DATE OF SURGERY: 08/10/2022. HISTORY OF PRESENT ILLNESS: Francis Cota is a 67-year-old gentleman seen with progressive right knee pain. We discussed options for treatment. He elected to proceed with right knee arthroscopy. Consent was obtained. PAST MEDICAL HISTORY: Hypothyroidism, oal-cbnfevc-chvxdzdro diabetes, hypertension. PAST SURGICAL HISTORY: Shoulder arthroscopy. DAILY MEDICATIONS: 1. Levothyroxine. 2. Metformin. 3. Testosterone. 4. Hydrocodone. ALLERGIES: None. SOCIAL HISTORY: Denies tobacco use. PHYSICAL EVALUATION OF THE RIGHT KNEE: Range of motion is 0 to 125. Tenderness along the medial joint line. Tenderness along the lateral joint line. Positive medial Sarina's. Positive lateral Sarina's. Ligaments stable. Hip rotation without pain. Distal neurovascular exam is intact. RADIOGRAPHS: Radiographs of the right knee revealed some mild osteoarthritic changes. MRI of right knee revealed chondromalacia with possible meniscal tear. IMPRESSION: 1. Internal derangement of right knee with medial meniscal tear. 2. Hypertension. 3. Hyperlipidemia. 4. Hypothyroidism. 5. Qzg-qvvddaz-budvbznia diabetes. PLAN: Right knee arthroscopy with partial medial meniscectomy and debridement. MMODL / IJN: [id number] /
--- NOTE | 2022-08-10 07:38 | HP ---
HISTORY AND PHYSICAL DATE OF SURGERY: 08/10/2022. HISTORY OF PRESENT ILLNESS: Francis Cota is a 67-year-old gentleman seen with progressive right shoulder pain. We discussed options for treatment. DICTATION ENDS HERE MMODL / IJN: [id number] /
[2022-08-10] MEDS ORDERED: DEXAMETHASONE SOD PHOSPHATE 4 MG/ML 1 ML VIAL IV ONE (13:01)
[2022-08-10] MEDS ORDERED: ONDANSETRON 4 MG/2 ML VIAL IVP ONE (13:01)
[2022-08-10] MEDS ORDERED: LACTATED RINGERS 1,000 ML IV SCH (13:01)
[2022-08-10] MEDS ORDERED: LIDOCAINE 1% (10MG/ML) FOR IV START INTRADERMA PRN (13:01)
[2022-08-10 13:28] LABS: Glucose,Whole Blood 126 mg/dL (70-110)
[2022-08-10] MEDS ORDERED: fentaNYL (PF) 50 MCG/ML 2 ML AMP ONE (14:24)
[2022-08-10] MEDS ORDERED: MIDAZOLAM 2 MG/2 ML VIAL ONE (14:24)
[2022-08-10] MEDS ORDERED: PROPOFOL 10 MG/ML 20 ML VIAL IV ONE (14:24)
[2022-08-10] MEDS ORDERED: LIDOCAINE 2% INJ 20 MG/ML (2 ML VIAL) ONE (14:24)
[2022-08-10] MEDS ORDERED: BUPIVACAINE (PF) 0.25% 30 ML VIAL INTRAARTIC ONE (14:46)
--- NOTE | 2022-08-10 15:10 | P.OP ---
Date of Procedure: 08/10/22 Preoperative Diagnosis: Internal derangement right knee Postoperative Diagnosis: 1. Tear medial and lateral meniscus right knee 2. 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 Reactive synovitis medial, lateral and suprapatellar compartments right knee Procedure(s) Performed: 1. Arthroscopic partial medial and lateral meniscectomy right knee 2. Arthroscopic chondroplasty patella right knee 3. Arthroscopic partial synovectomy medial, lateral and suprapatellar compartments right knee Anesthesia: TANVIA, local Surgeon: Americo Conteh Estimated Blood Loss (ml): 8 Pathology: none sent Condition: stable Disposition: PACU Indications for Procedure: 67-year-old gentleman seen with progressive right knee pain. After treatment options were discussed, he elected to proceed with arthroscopy. Operative Findings: see description of procedure Description of Procedure: Patient was taken to the operative suite. Patient underwent a general anesthetic by the department of anesthesia. Patient was given preoperative antibiotics. The right lower extremity was placed in a well-padded arthroscopic leg brady. The right leg was prepped and draped in the normal sterile orthopedic fashion. A lateral parapatellar and suprapatellar incision was made. Trochars were inserted. Arthroscopy was initiated. Suprapatellar pouch revealed diffuse thick reactive synovitis. The patellofemoral joint appeared to articulate congruently. There was grade 1/2 chondromalacia of the patella with osteochondral flap tears present. The scope was guided into the medial gutter. No loose bodies or plica were identified. The scope was then guided into the medial compartment. A medial parapatellar incision was made. Trocar inserted followed by probe. There was a radial tear posterior horn medial meniscus. There were grade 1 chondromalacia changes the medial compartment without any tears. There was some reactive synovitis anteriorly. I performed a partial medial meniscectomy getting down to stable meniscal tissue. I performed a partial synovectomy decompressing the reactive synovitis. The residual meniscus was stable. There was good decompression of the synovitis. Scope and probe were then guided into the intercondylar notch. Cruciates were identified, probed and found to be stable. The scope and probe were then guided into lateral compartment. There was a radial tear posterior horn lateral meniscus. There was mild grade 1 chondromalacia involving lateral compartment. There was some thick reactive synovitis anteriorly. I performed a partial lateral meniscectomy getting down to stable meniscal tissue. I performed a partial synovectomy compressing the reactive synovitis. The residual meniscus was stable. There was good decompression of synovitis. The scope was in guided back into the suprapatellar compartment. I introduced a motorized shaver into the suprapatellar compartment. I performed a partial synovectomy. I performed a chondroplasty of the patella gained down to stable osteochondral tissue. The shaver was now removed. There was good decompression of synovitis. The residual osteochondral surface of the patella was stable. I took one more look around the entire knee, no residual debris. Instruments were now removed from the joint. The joint was infiltrated with .25% Marcaine. Steri-Strips were applied to the portal sites. Sterile dressings were applied. The patient was placed into a COOPER hose. No tourniquet was utilized. The patient was awakened, transferred to a bed and taken to recovery stable satisfactory condition.
[2022-08-10 15:14] VITALS: TEMP 97.4
[2022-08-10] MEDS: HYDROmorphone 0.5 MG/0.5 ML SYRINGE IVP PRN ×2 (15:40→15:56)
[2022-08-10 16:40] LABS: Glucose,Whole Blood 121 mg/dL (70-110)
[2022-08-10 16:42] VITALS: RESP 16
[2022-08-10] MEDS ORDERED: HYDROcodone/APAP 5-325MG 1 EACH TAB ONE (16:54)
[2022-08-10 17:05] VITALS: PULSE 80
[2022-08-10 17:19] VITALS: BP 144/84
== END 2022-08-10 17:40 | disposition home or self-care (01) ==
LOC: OR 12:37
PROVIDERS: ATTEND Orthopaedic Surgery
DX: S83.241A Other tear of medial meniscus, current injury, right knee, initial encounter (principal); S83.281A Other tear of lateral meniscus, current injury, right knee, initial encounter; M23.91 Unspecified internal derangement of right knee; M94.261 Chondromalacia, right knee; M65.9 Synovitis and tenosynovitis, unspecified; E03.9 Hypothyroidism, unspecified; E11.9 Type 2 diabetes mellitus without complications; E78.5 Hyperlipidemia, unspecified; I10 Essential (primary) hypertension; M17.11 Unilateral primary osteoarthritis, right knee; Z79.84 Long term (current) use of oral hypoglycemic drugs
CPT/HCPCS: 29880; J2250; J1100; J0690; J2405; J3010; J2704; J1170; J2001

== ENCOUNTER → 2022-10-18 | Outpatient (CLI) | payer MEDICARE, OTHER ==
[2022-10-19 03:43] LABS: Microalbumin Creatinine Ratio <30 mg/g Creat (0-30)
[2022-10-19 13:26] LABS: ALT 28 U/L (10-49); AST 24 U/L (14-35); African American GFR (CKD) 89.2 (60.0-200.0); Albumin 4.2 g/dL (3.8-4.9); Albumin/Globulin Ratio 1.83 (1.60-3.17); Alkaline Phosphatase 65 U/L (41-126); Blood Urea Nitrogen 16.3 mg/dL (9.0-27.0); Calcium 9.3 mg/dL (8.7-10.3); Carbon Dioxide 28.2 mmol/L (20.0-27.5); Chloride 102 mmol/L (96-109); Chol/HDL Ratio 2.71 Ratio; Globulin 2.3 g/dL (1.6-3.3); Glucose 142 mg/dL (70-110); LDL Cholesterol,Calculated 34.3 mg/dL (0.0-131.0); Potassium 4.1 mmol/L (3.5-5.5); Sodium 139 mmol/L (135-145); Total Protein 6.5 g/dL (6.2-8.2)
== END | disposition home or self-care (01) ==
LOC: LABWHC1 11:33
PROVIDERS: ATTEND Internal Medicine Endocrinology, Diabetes & Metabolism
DX: E11.65 Type 2 diabetes mellitus with hyperglycemia (principal)
CPT/HCPCS: 36415; 80053; 80061; 82043; 82570; 83036; 84443

== ENCOUNTER → 2023-01-16 | Outpatient (CLI) | payer MEDICARE ==
--- NOTE | 2023-01-18 06:17 | MR ---
EXAMINATION TYPE: MR shoulder RT wo con DATE OF EXAM: 01/16/2023 COMPARISON: Prior MRI right shoulder September 28, 2021. Most recent right shoulder x-ray November 28, 2022. HISTORY: Persistent pain with difficulty raising arm overhead despite 2 prior surgeries, last May 2022 TECHNIQUE: Multiplanar, multisequence imaging of the right shoulder is performed without contrast. FINDINGS: Rotator Cuff: Mild increased signal in the supraspinatus and infraspinatus tendons distally. Surgical ly repaired tendons remain intact. Rotator cuff muscle bulk preserved. Acromioclavicular Joint: No significant narrowing or spurring. Prior surgical change once again suspe cted. Glenohumeral Joint: Small-sized joint effusion redemonstrated. No significant spurring. Labrum: Blunting of the superior labrum suggesting degenerative tearing. Biceps Tendon: The long head of biceps is in normal location within bicipital groove. Intracapsular p ortion not well seen especially insertion at the labral anchor Bone marrow signal: Artifact from rotator cuff surgery in the humeral head is redemonstrated. Other: No additional significant abnormality is appreciated. IMPRESSION: No recurrent retracted rotator cuff tear. Postsurgical changes as detailed above. Cannot exclude tear of the intracapsular portion of the long head of biceps tendon. No significant change fr om most recent prior MRI.
== END | disposition home or self-care (01) ==
LOC: RADMRIMAIN 10:50
PROVIDERS: ATTEND Orthopaedic Surgery
DX: M25.511 Pain in right shoulder (principal)

== ENCOUNTER → 2023-01-18 | Outpatient (CLI) | payer MEDICARE ==
[2023-01-18 16:02] LABS: ALT 29 U/L (10-49); AST 23 U/L (14-35); African American GFR (CKD) 83.2 (60.0-200.0); Albumin 4.2 g/dL (3.8-4.9); Alkaline Phosphatase 57 U/L (41-126); BUN/Creat Ratio 18.11 Ratio (12.00-20.00); Blood Urea Nitrogen 19.2 mg/dL (9.0-27.0); Calcium 9.5 mg/dL (8.7-10.3); Carbon Dioxide 29.2 mmol/L (20.0-27.5); Chloride 106 mmol/L (96-109); Globulin 2.2 g/dL (1.6-3.3); Glucose 99 mg/dL (70-110); LDL Cholesterol,Calculated 38.8 mg/dL (0.0-131.0); Non-African American GFR(CKD) 71.8 (60.0-200.0); Potassium 4.2 mmol/L (3.5-5.5); Sodium 144 mmol/L (135-145); Total Protein 6.4 g/dL (6.2-8.2)
[2023-01-18 16:57] LABS: Microalbumin Creatinine Ratio <30 mg/g Creat (0-30)
== END | disposition home or self-care (01) ==
LOC: LABWHC1 08:19
PROVIDERS: ATTEND Internal Medicine Endocrinology, Diabetes & Metabolism
DX: E11.65 Type 2 diabetes mellitus with hyperglycemia (principal)
CPT/HCPCS: 36415; 80053; 80061; 82043; 82570; 83036; 84443

== ENCOUNTER 2023-02-20 13:18 | Emergency (ER) | payer MEDICARE ==
[2023-02-20] MEDS ORDERED: ASPIRIN 81 MG PO STA (14:08)
[2023-02-20] MEDS ORDERED: MORPHINE SULFATE 4 MG/ML SYRINGE IV STA (14:08)
[2023-02-20] MEDS ORDERED: SODIUM CHLORIDE 0.9% 500 ML 500 ML IV STA (14:08)
[2023-02-20] MEDS ORDERED: PANTOPRAZOLE 40 MG/10 ML VIAL IVP STA (14:09)
--- NOTE | 2023-02-20 14:14 | ED ---
General Adult HPI - General Chief complaint: Abdominal Pain Stated complaint: cough, nausea Time Seen by Provider: 02/20/23 13:59 Source: patient, family, RN notes reviewed, old records reviewed Mode of arrival: ambulatory Limitations: no limitations - History of Present Illness Initial comments: This is a nontoxic-appearing 67-year-old male that presents to the emergency room ambulatory sent by urgent care for chest pain and abdominal pain. Patient states he's been having abdominal pain and epigastric pain for a few weeks that usually resolves with antacids. Last night and throughout the day today pain was significantly worse so he went to urgent care. They recommended he come to the emergency room. He did have 1 episode of vomiting undigested food. Denies any shortness of breath. Occasional cough but no fevers. -: week(s) (2) Location: chest, abdomen Severity scale (1-10): 5 Quality: constant, other (fullness) Consistency: constant Improves with: none Worsens with: none Associated Symptoms: chest pain, nausea/vomiting (once today) Treatments Prior to Arrival: other (sent by urgent care) - Related Data Home Medications Medication Instructions Recorded Confirmed Glimepiride [Amaryl] 2 mg PO DAILY 08/15/17 02/20/23 Multivitamins, Thera [Multivitamin 1 tab PO W/LUNCH 08/15/17 02/20/23 (formulary)] metFORMIN HCL [Glucophage] 1,000 mg PO BID 08/15/17 02/20/23 traZODone HCL 50 mg PO HS 08/15/17 02/20/23 Dicyclomine [Bentyl] 10 mg PO TID PRN 03/28/19 02/20/23 Loratadine [Claritin] 10 mg PO W/LUNCH 03/28/19 02/20/23 Aspirin 81 mg PO W/LUNCH 11/23/20 02/20/23 Atorvastatin [Lipitor] 80 mg PO HS 11/23/20 02/20/23 Amitriptyline HCl 50 mg PO HS 01/24/22 02/20/23 ALPRAZolam [Xanax] 1 mg PO HS PRN 02/20/23 02/20/23 Apple Cider Vinegar 480mg 480 mg PO W/LUNCH 02/20/23 02/20/23 Cholecalciferol [Vitamin D3 (25 50 mcg PO W/LUNCH 02/20/23 02/20/23 Mcg = 1000 Iu)] Cinnamon 10,000mg 10,000 mg PO W/LUNCH 02/20/23 02/20/23 Dulaglutide [Trulicity] 1.5 mg SQ MO 02/20/23 02/20/23 Levothyroxine Sodium [Synthroid] 75 mcg PO DAILY 02/20/23 02/20/23 Losartan [Cozaar] 50 mg PO DAILY 02/20/23 02/20/23 Pioglitazone [Actos] 45 mg PO PC-LUNCH 02/20/23 02/20/23 Sildenafil Citrate [Sildenafil] 20 - 100 mg PO DIRECTED PRN 02/20/23 02/20/23 Previous Rx's Medication Instructions Recorded Docusate [Colace] 100 mg PO DAILY 30 Days #30 capsule 02/20/23 Famotidine [Pepcid] 20 mg PO BID 30 Days #60 tablet 02/20/23 Allergies Allergy/AdvReac Type Severity Reaction Status Date / Time No Known Allergies Allergy Verified 02/20/23 15:13 Review of Systems ROS Statement: Those systems with pertinent positive or pertinent negative responses have been documented in the HPI. ROS Other: All systems not noted in ROS Statement are negative. Past Medical History Past Medical History: Diabetes Mellitus, Hyperlipidemia, Hypertension, Musculoskeletal Disorder, Thyroid Disorder Additional Past Medical History / Comment(s): IBS, chronic neck pain History of Any Multi-Drug Resistant Organisms: None Reported Past Surgical History: Orthopedic Surgery Additional Past Surgical History / Comment(s): deviated septum, cervical fusion x2, rt rotator cuff repair Past Anesthesia/Blood Transfusion Reactions: Motion Sickness Past Psychological History: Depression Smoking Status: Never smoker Past Alcohol Use History: None Reported Past Drug Use History: None Reported - Past Family History Mother Family Medical History: CVA/TIA General Exam Limitations: no limitations General appearance: alert, in no apparent distress Head exam: Present: atraumatic Eye exam: Present: normal appearance. Absent: scleral icterus, conjunctival injection, periorbital swelling Neck exam: Present: full ROM. Absent: tenderness, meningismus Respiratory exam: Present: normal lung sounds bilaterally. Absent: respiratory distress, accessory muscle use Cardiovascular Exam: Present: regular rate, normal heart sounds GI/Abdominal exam: Present: soft. Absent: distended, tenderness, guarding, rebo und, rigid Extremities exam: Present: full ROM, normal capillary refill. Absent: tenderness, pedal edema Neurological exam: Present: alert, oriented X3, normal gait Psychiatric exam: Present: normal affect, normal mood Skin exam: Present: warm, dry, normal color. Absent: cyanosis, diaphoretic, pet echiae, pallor Course Vital Signs 02/20/23 02/20/23 02/20/23 13:32 14:41 15:57 Temperature 97.7 F 98.5 F Pulse Rate 96 75 Respiratory 16 20 Rate Blood Pressure 132/86 110/73 129/74 O2 Sat by Pulse 96 98 Oximetry EKG Findings - EKG Comments: EKG Findings:: EKG interpreted by me shows sinus rhythm with a ventricular rate of 88, [place] interval 0.166, QRS 0.96, QTC 0.389, normal axis, no significant change compared to old 07/27/2022 Medical Decision Making - Medical Decision Making Was pt. sent in by a medical professional or institution (, PA, ENVIRONMENT FRIENDLY LANDSCAPE DESIGNER, urgent care, hospital, or shelter...) When possible be specific @ -Yes urgent care Did you speak to anyone other than the patient for history (EMS, parent, family, police, friend...)? What history was obtained from this source @ -no Did you review nursing and triage notes (agree or disagree)? Why? @ -I reviewed and agree with nursing and triage notes Were old charts reviewed (outside hosp., previous admission, EMS record, old EKG, old radiological studies, urgent care reports/EKG's, shelter records)? Report findings @ -Old EKG 07/27/2022 Differential Diagnosis (chest pain, altered mental status, abdominal pain women, abdominal pain men, vaginal bleeding, weakness, fever, dyspnea, syncope, headache, dizziness, GI bleed, back pain, seizure, CVA, palpatations, mental health, musculoskeletal)? @ -Differential Abdominal Pain Men: Appendicitis, cholecystitis, diverticulosis, ischemic bowel, pancreatitis, hepatitis, UTI, gastroenteritis, AAA, incarcerated hernia, bowel obstruction, constipation, inflammatory bowel, hepatitis, peptic ulcer disease, splenic infarction, perforated viscus, testicular torsion, this is not meant to be an all-inclusive list Differential Chest Pain: Stable Angina, Unstable Angina, STEMI, NSTEMI Aortic Dissection, Pneumothorax, Musculoskeletal, Esophageal Spasm GERD, Cholecystitis, Pancreatitis, Zoster, this is not meant to be an all-inclusive list. EKG interpreted by me (3pts min.). @ -Yes. EKG shows sinus rhythm with a ventricular rate of 88, [place] interval 0.166, QRS 0.96, QTC 0.389. No Significant change compared to old 07/27/2022. X-rays interpreted by me (1pt min.). @ Chest x-ray interpreted by me shows no evidence of free air. CT interpreted by me (1pt min.). @ -no U/S interpreted by me (1pt. min.). @ -None done What testing was considered but not performed or refused? (CT, X-rays, U/S, labs)? Why? @ -None What meds were considered but not given or refused? Why? @ -None Did you discuss the management of the patient with other professionals (professionals i.e. , PA, ENVIRONMENT FRIENDLY LANDSCAPE DESIGNER, lab, RT, psych nurse, hospice social worker, clinical trial coordinator, teacher, ground defence officer, outpatient case manager)? Give summary @ -No Was smoking cessation discussed for >3mins.? @ -No Was critical care preformed (if so, how long)? @ -No Were there social determinants of health that impacted care today? How? (Homelessness, low income, unemployed, alcoholism, drug addiction, transportation, low edu. Level, literacy, decrease access to med. care, snf, r ehab)? @ -No Was there de-escalation of care discussed even if they declined (Discuss DNR or withdrawal of care, Hospice)? DNR status @ -No What co-morbidities impacted this encounter? (DM, HTN, Smoking, COPD, CAD, Cancer, CVA, ARF, Chemo, Hep., AIDS, mental health diagnosis, sleep apnea, morbid obesity)? @ -Patient has history of [id number] diabetes, depression, TIA, hyperlipidemia, hypertension, IBS and chronic neck pain. Was patient admitted / discharged? Hospital course, mention meds given and route, prescriptions, significant lab abnormalities, going to OR and other pertinent info. @ -Discharged. This is a nontoxic-appearing 67-year-old male that presents to the emergency room ambulatory sent by urgent care for chest pain and abdominal pain. Patient states he's been having abdominal pain and epigastric pain for a few weeks that usually resolves with antacids. Last night and throughout the day today pain was significantly worse so he went to urgent care. He did have 1 episode of vomiting undigested food. Denies any shortness of breath. Occasional cough but no fevers. Heart score low. Troponin -0.012. EKG interpreted by me shows sinus rhythm with a ventricular rate of 88, [place] interval 0.166, QRS 0.96, QTC 0.389, normal axis, no significant change compared to old 07/27/2022 CBC and electrolytes are unremarkable. Chest x-ray interpreted by me shows no evidence of free air. No focal consolidation. Trachea is midline. Radiologist interpretation some hypoventilatory changes. Some mild patchy retrocardiac density likely atelectasis rather than infiltrate. Patient was given Protonix and morphine with improvement in his symptoms. States he does still have some abdominal discomfort therefore CT abdomen and pelvis was performed. Radiologist interpretation small bowel feces seen within multiple loops of small bowel predominantly lower and right lower aspect. Currently for slow transit. There is a large stool burden throughout the colon also present. Scattered colonic diverticula. Severe coronary arthrosclerosis. Small hiatal hernia. Umbilical hernia. Bilateral fat containing inguinal hernias. Patient is given baby aspirin upon arrival for epigastric chest pain. Morphine and Protonix with resolution of his symptoms. Patient was given an enema for constipation. Results of the CT and labs were discussed with the patient. He was discharged home with constipation, hiatal hernia with GERD, abdominal pain, inguinal hernia and umbilical hernia. He was prescribed Colace and Pepcid directed to follow up with his primary care doctor this week and return with any new or concerning symptoms. Patient and are agreeable to this plan of care. Case discussed with Dr. Velasquez. Undiagnosed new problem with uncertain prognosis? @ -No Drug Therapy requiring intensive monitoring for toxicity (Heparin, Nitro, Insulin, Cardizem)? @ -No] Were any procedures done? @ -[No] Diagnosis/symptom? @ -Abdominal pain, hiatal hernia with GERD, inguinal hernias, umbilical hernia, constipation Acute, or Chronic, or Acute on Chronic? @ -Acute Uncomplicated (without systemic symptoms) or Complicated (systemic symptoms)? @ -Uncomplicated Side effects of treatment? @ -[No] Exacerbation, Progression, or Severe Exacerbation? @ -[No] Poses a threat to life or bodily function? How? (Chest pain, [place], [place], pneumonia, PE, COPD, DKA, ARF, appy, cholecystitis, CVA, Diverticulitis, Homicidal, Suicidal, threat to staff... and all critical care pts) @ -[No] - Lab Data Result diagrams: 02/20/23 14:08 02/20/23 14:08 Lab Results 02/20/23 02/20/23 02/20/23 Range/Units 14:08 14:08 14:08 WBC 7.0 (3.8-10.6) k/uL RBC 4.64 (4.30-5.90) m/uL Hgb 14.6 (13.0-17.5) gm/dL Hct 44.6 (39.0-53.0) % MCV 96.0 (80.0-100.0) fL MCH 31.3 (25.0-35.0) pg MCHC 32.6 (31.0-37.0) g/dL RDW 13.0 (11.5-15.5) % Plt Count 276 (150-450) k/uL MPV 7.2 Neutrophils % 59 % Lymphocytes % 32 % Monocytes % 6 % Eosinophils % 1 % Basophils % 0 % Neutrophils # 4.2 (1.3-7.7) k/uL Lymphocytes # 2.2 (1.0-4.8) k/uL Monocytes # 0.4 (0-1.0) k/uL Eosinophils # 0.1 (0-0.7) k/uL Basophils # 0.0 (0-0.2) k/uL PT 10.1 (9.0-12.0) sec INR 0.9 (<1.2) APTT 23.3 (22.0-30.0) sec Sodium 138 (137-145) mmol/L Potassium 4.3 (3.5-5.1) mmol/L Chloride 101 (98-107) mmol/L Carbon Dioxide 29 (22-30) mmol/L Anion Gap 8 mmol/L BUN 18 (9-20) mg/dL Creatinine 0.95 (0.66-1.25) mg/dL Est GFR (CKD-EPI)AfAm >90 (>60 ml/min/1.73 sqM) Est GFR (CKD-EPI)NonAf 82 (>60 ml/min/1.73 sqM) Glucose 128 H (74-99) mg/dL Calcium 9.6 (8.4-10.2) mg/dL Magnesium 1.6 (1.6-2.3) mg/dL Total Bilirubin 0.6 (0.2-1.3) mg/dL AST 26 (17-59) U/L ALT 26 (4-49) U/L Alkaline Phosphatase 59 (38-126) U/L Troponin I (0.000-0.034) ng/mL Total Protein 7.0 (6.3-8.2) g/dL Albumin 4.3 (3.5-5.0) g/dL Amylase 96 (30-110) U/L Lipase 242 (23-300) U/L 02/20/23 Range/Units 14:08 WBC (3.8-10.6) k/uL RBC (4.30-5.90) m/uL Hgb (13.0-17.5) gm/dL Hct (39.0-53.0) % MCV (80.0-100.0) fL MCH (25.0-35.0) pg MCHC (31.0-37.0) g/dL RDW (11.5-15.5) % Plt Count (150-450) k/uL MPV Neutrophils % % Lymphocytes % % Monocytes % % Eosinophils % % Basophils % % Neutrophils # (1.3-7.7) k/uL Lymphocytes # (1.0-4.8) k/uL Monocytes # (0-1.0) k/uL Eosinophils # (0-0.7) k/uL Basophils # (0-0.2) k/uL PT (9.0-12.0) sec INR (<1.2) APTT (22.0-30.0) sec Sodium (137-145) mmol/L Potassium (3.5-5.1) mmol/L Chloride (98-107) mmol/L Carbon Dioxide (22-30) mmol/L Anion Gap mmol/L BUN (9-20) mg/dL Creatinine (0.66-1.25) mg/dL Est GFR (CKD-EPI)AfAm (>60 ml/min/1.73 sqM) Est GFR (CKD-EPI)NonAf (>60 ml/min/1.73 sqM) Glucose (74-99) mg/dL Calcium (8.4-10.2) mg/dL Magnesium (1.6-2.3) mg/dL Total Bilirubin (0.2-1.3) mg/dL AST (17-59) U/L ALT (4-49) U/L Alkaline Phosphatase (38-126) U/L Troponin I <0.012 (0.000-0.034) ng/mL Total Protein (6.3-8.2) g/dL Albumin (3.5-5.0) g/dL Amylase (30-110) U/L Lipase (23-300) U/L Disposition Clinical Impression: Constipation, Abdominal pain, Umbilical hernia, Hiatal hernia with GERD, Inguinal hernia Disposition: HOME SELF-CARE Condition: Good Instructions (If sedation given, give patient instructions): Constipation (ED), GERD (Gastroesophageal Reflux Disease) (ED), Abdominal Pain (ED) Additional Instructions: Increase your fluid intake. Take the Colace daily to prevent constipation. Take Pepcid twice a day for reflux and heartburn. Follow-up with the primary care doctor this week. Discussed with him your symptoms. Advised him that you had a computed tomography scan that shows a small hiatal hernia, bilateral fat containing inguinal hernias and a small umbilical hernia. Return to the emergency room with any new or concerning symptoms including increased pain, fevers, or persistent nausea vomiting Prescriptions: Docusate [Colace] 100 mg PO DAILY 30 Days #30 capsule Famotidine [Pepcid] 20 mg PO BID 30 Days #60 tablet Is patient prescribed a controlled substance at d/c from ED?: No Referrals: Barry Wilkins MD [Primary Care Provider] - 1-2 days Time of Disposition: 15:56
[2023-02-20 14:31] LABS: Basophils % (A) 0 %; Eosinophils # (A) 0.1 k/uL (0-0.7); Eosinophils % (A) 1 %; HCT 44.6 % (39.0-53.0); HGB 14.6 gm/dL (13.0-17.5); Lymphocytes # (A) 2.2 k/uL (1.0-4.8); Lymphocytes % (A) 32 %; MCH 31.3 pg (25.0-35.0); MCHC 32.6 g/dL (31.0-37.0); Mean Platelet Volume 7.2; Monocytes # (A) 0.4 k/uL (0-1.0); Monocytes % (A) 6 %; Neutrophils # (A) 4.2 k/uL (1.3-7.7); Neutrophils % (A) 59 %; Platelet Count 276 k/uL (150-450); RBC 4.64 m/uL (4.30-5.90)
[2023-02-20 14:42] VITALS: TEMP 98.5
[2023-02-20 14:44] LABS: ALT 26 U/L (4-49); AST 26 U/L (17-59); African American GFR (CKD) >90 (>60 ml/min/1.73 sqM); Albumin 4.3 g/dL (3.5-5.0); Alkaline Phosphatase 59 U/L (38-126); Amylase 96 U/L (30-110); Anion Gap 8 mmol/L; Blood Urea Nitrogen 18 mg/dL (9-20); Calcium 9.6 mg/dL (8.4-10.2); Carbon Dioxide 29 mmol/L (22-30); Chloride 101 mmol/L (98-107); Glucose 128 mg/dL (74-99); Lipase 242 U/L (23-300); Magnesium 1.6 mg/dL (1.6-2.3); Non-African American GFR(CKD) 82 (>60 ml/min/1.73 sqM); Potassium 4.3 mmol/L (3.5-5.1); Sodium 138 mmol/L (137-145); Total Bilirubin 0.6 mg/dL (0.2-1.3)
[2023-02-20 14:45] LABS: INR 0.9 (<1.2); Partial Thromboplastin Time 23.3 sec (22.0-30.0); Prothrombin Time 10.1 sec (9.0-12.0)
--- NOTE | 2023-02-20 15:06 | XR ---
EXAMINATION TYPE: XR chest 2V DATE OF EXAM: 02/20/2023 COMPARISON: 03/17/2021 HISTORY: 67-year-old male with chest pain TECHNIQUE: AP and lateral views FINDINGS: Heart upper limits of normal in size. Low lung volumes with some crowded vascular markings. Some patc hy retrocardiac/left basilar opacity is noted. No consolidation or pleural effusion otherwise seen. IMPRESSION: Some hypoventilatory changes. Some mild patchy retrocardiac density likely atelectasis rather than in filtrate. Clinically correlate.
--- NOTE | 2023-02-20 15:47 | CT ---
EXAMINATION TYPE: CT abdomen pelvis w con CT DLP: 1043 mGycm, Automated exposure control for dose reduction was used. DATE OF EXAM: 02/20/2023 3:36 PM COMPARISON: None CLINICAL INDICATION:Male, 67 years old with history of abd pain; TECHNIQUE: Axial CT of the abdomen and pelvis. Sagittal and coronal reformats were created on a [employer] workstation. Contrast used: 100 cc of Isovue-300. Oral contrast used: None FINDINGS: LOWER CHEST: There is enlarged for size. There is severe coronary artery calcifications. Streaky atel ectasis in the lung bases. ABDOMEN LIVER: Unremarkable GALLBLADDER AND BILE DUCTS: Unremarkable. PANCREAS: Unremarkable. SPLEEN: Unremarkable. ADRENAL GLANDS: Unremarkable. KIDNEYS AND URETERS: No evidence of hydronephrosis or renal calculus. The ureters are unremarkable. PELVIS BLADDER: Unremarkable REPRODUCTIVE: Unremarkable. ABDOMEN & PELVIS STOMACH AND BOWEL: Small hiatal hernia, duodenum is unremarkable. Scattered diverticula are noted thr oughout the colon. Stomach is distended with ingested contents. There is some small bowel feces throu ghout the small bowel prominent in the lower right lower aspect. Feces is seen within the colon. With moderate to large stool burden throughout the colon. PERITONEUM/RETROPERITONEUM: No evidence of pneumoperitoneum or free fluid. VASCULATURE: Mild atherosclerotic calcifications are present throughout the abdominal aorta and its b ranches. No evidence of aortic aneurysm. MUSCULOSKELETAL: No acute osseous abnormalities LYMPH NODES: No gross evidence for lymphadenopathy. SOFT TISSUE/ABDOMINAL WALL: Bilateral fat-containing inguinal hernias. Bilateral umbilical hernias. IMPRESSION: 1. Small bowel feces seen within multiple loops of small bowel predominantly in the lower and right lower aspect. Correlate for slow transit. Consider dedicated small bowel follow-through. There is a l arge stool burden throughout the colon also present. No additional acute abdominal process to explain this patient's pain. 2. Scattered colonic diverticula. 3. Severe coronary atherosclerosis. 4. Small hiatal hernia. 5. Exam umbilical hernia. 6. Bilateral fat-containing inguinal hernias.
[2023-02-20] MEDS ORDERED: NA PHOS,M-B/NA PHOS,DI-BA 133 ML ENEMA RECTAL STA (15:49)
[2023-02-20 17:29] VITALS: BP 124/81; PULSE 78; RESP 18
== END 2023-02-20 17:28 | disposition home or self-care (01) ==
LOC: EC 13:18
DX: K59.00 Constipation, unspecified (principal); K42.9 Umbilical hernia without obstruction or gangrene; K44.9 Diaphragmatic hernia without obstruction or gangrene; K40.20 Bilateral inguinal hernia, without obstruction or gangrene, not specified as recurrent; K21.9 Gastro-esophageal reflux disease without esophagitis; K57.30 Diverticulosis of large intestine without perforation or abscess without bleeding; E11.9 Type 2 diabetes mellitus without complications; E78.5 Hyperlipidemia, unspecified; E07.9 Disorder of thyroid, unspecified; I10 Essential (primary) hypertension; F32.A Depression, unspecified; Z79.82 Long term (current) use of aspirin; Z79.84 Long term (current) use of oral hypoglycemic drugs; Z79.890 Hormone replacement therapy; Z79.899 Other long term (current) drug therapy
CPT/HCPCS: 36415; 93005; 80053; 82150; 83690; 83735; 84484; 85025; 85610; 85730; 71046; 74177; 99285; 96374; 96375; 96361; J2270; C9113; Q9967

== ENCOUNTER → 2023-08-01 | Outpatient (CLI) | payer MEDICARE ==
[2023-08-01 16:57] LABS: ALT 23 U/L (10-49); AST 20 U/L (14-35); Albumin 4.2 d/dL (3.8-4.9); Alkaline Phosphatase 61 U/L (41-126); Calcium 9.1 mg/dL (8.7-10.3); Carbon Dioxide 27.9 mmol/L (21.6-31.8); Chloride 103 mmol/L (96-109); Chol/HDL Ratio 2.18 Ratio; Globulin 2.1 d/dL (1.6-3.3); Glucose 126 mg/dL (70-110); LDL Cholesterol,Calculated 31.3 mg/dL (0.0-131.0); Sodium 142 mmol/L (135-145); Total Bilirubin 0.4 mg/dL (0.3-1.2); Total Protein 6.3 d/dL (6.2-8.2); VLDL Calculation 13.58 mg/dL (5.00-40.00)
[2023-08-01 19:49] LABS: Microalbumin Creatinine Ratio <7 mg/g Cr (0-30)
== END | disposition home or self-care (01) ==
LOC: LABWHC1 09:36
PROVIDERS: ATTEND Internal Medicine Endocrinology, Diabetes & Metabolism
DX: E11.65 Type 2 diabetes mellitus with hyperglycemia (principal)
CPT/HCPCS: 36415; 80053; 80061; 82043; 82570; 83036; 84443

== ENCOUNTER → 2024-09-10 | Outpatient (CLI) | payer MEDICARE ==
[2024-09-10 16:24] LABS: ALT 23 U/L (10-49); AST 21 U/L (14-35); Albumin 4.3 g/dL (3.8-4.9); Albumin/Globulin Ratio 1.79 Ratio (1.60-3.17); Alkaline Phosphatase 71 U/L (41-126); Blood Urea Nitrogen 14.7 mg/dL (9.0-27.0); Calcium 10.5 mg/dL (8.7-10.3); Carbon Dioxide 28.4 mmol/L (21.6-31.8); Chloride 101 mmol/L (96-109); Chol/HDL Ratio 2.08 Ratio; Globulin 2.4 g/dL (1.6-3.3); Glucose 191 mg/dL (70-110); LDL Cholesterol,Calculated 32.1 mg/dL (0.0-131.0); Potassium 4.7 mmol/L (3.5-5.5); Sodium 139 mmol/L (135-145); Total Bilirubin 0.4 mg/dL (0.3-1.2); Total Protein 6.7 g/dL (6.2-8.2); VLDL Calculation 14.66 mg/dL (5.00-40.00)
[2024-09-10 19:28] LABS: Microalbumin Creatinine Ratio <8 mg/g Cr (0-30)
== END | disposition home or self-care (01) ==
LOC: LABWHC1 09:00
PROVIDERS: ATTEND Internal Medicine Endocrinology, Diabetes & Metabolism
DX: E11.65 Type 2 diabetes mellitus with hyperglycemia (principal)
CPT/HCPCS: 36415; 80053; 80061; 82043; 82570; 83036; 84443

== ENCOUNTER → 2024-10-06 | Outpatient (CLI) | payer MEDICARE ==
--- NOTE | 2024-10-06 14:49 | US ---
EXAMINATION TYPE: US arterial LE single level DATE OF EXAM: 10/06/2024 2:16 PM COMPARISONS: CT abdomen and pelvis February 20, 2023. CLINICAL INDICATION: Male, 69 years old with history of I99.9 UNSPECIFIED DISORDER OF CIRCULATORY SYS TEM; LOSING HAIR ON LEGS, COLD LEGS/FEET TECHNIQUE: Systolic pressures were taken of the upper and lower extremity arteries with ankle-brachia l indices and toe brachial indices calculated bilaterally. History of: Smoker: N Hypertension: Y Diabetic: Y Hyperlipidemia: Y TIA/CVA: N Previous Vascular Surgery: N CAD: N IN: N Vascular Ulcers: N Claudication: N Gangrene: N FINDINGS: Doppler Waveforms: Right: Multiphasic Left: Multiphasic Brachial Artery systolic pressure: Right: 120 Left: 129 Posterior Tibial artery systolic pressure: Right: 154 Left: 172 Dorsalis Pedis artery systolic pressure: Right: 150 Left: 150 Toe artery systolic pressure: Right: CNO Left: CNO Ankle-Brachial Indices: Right: 1.19 Left: 1.33 Toe Brachial Indices: Right: CNO Left: CNO (Normal > 0.6; Mild 0.35 - 0.59, Moderate 0.12 - 0.34, Severe <0.12) IMPRESSION: ALBERT: Right: Normal 0.9 - 1.4, Recommendation: None Left: Normal 0.9 - 1.4, Recommendation: None [facility], , 10/06/2024 2:47 PM
== END | disposition home or self-care (01) ==
LOC: RADUSWWP 13:18
PROVIDERS: ATTEND Pediatrics
DX: I99.9 Unspecified disorder of circulatory system (principal); I73.9 Peripheral vascular disease, unspecified
CPT/HCPCS: 93922

== ENCOUNTER → 2024-12-10 | Outpatient (CLI) | payer MEDICARE ==
--- NOTE | 2024-12-10 11:26 | XR ---
EXAMINATION TYPE: XR foot complete LT DATE OF EXAM: 12/10/2024 10:47 AM COMPARISON: None CLINICAL INDICATION: Male, 69 years old with history of M79.672 heel pain L; PHH, pain TECHNIQUE: XR foot complete LT examined in the AP, oblique, and lateral projections. FINDINGS: No evidence of any acute osseous pathology. Calcaneal plantar spurring is present. Multifocal degener ation changes throughout the joints of the foot with osteophyte formation and joint space narrowing. IMPRESSION: 1. Remote injury to the third and fourth metatarsals suggested. No evidence of acute fracture. 2. Mild degeneration changes throughout the joints of the foot. 3. Calcaneal plantar spurring. [facility], , 12/10/2024 11:24 AM
== END | disposition home or self-care (01) ==
LOC: RADXRMAIN 10:35
PROVIDERS: ATTEND Pediatrics
DX: M19.072 Primary osteoarthritis, left ankle and foot (principal); M77.32 Calcaneal spur, left foot

== ENCOUNTER → 2025-03-13 | Outpatient (CLI) | payer MEDICARE ==
[2025-03-13 15:34] LABS: ALT 22 U/L (10-49); AST 21 U/L (14-35); Albumin 4.3 g/dL (3.8-4.9); Albumin/Globulin Ratio 1.95 Ratio (1.60-3.17); Alkaline Phosphatase 57 U/L (41-126); Blood Urea Nitrogen 19.6 mg/dL (9.0-27.0); Calcium 9.1 mg/dL (8.7-10.3); Carbon Dioxide 26.8 mmol/L (21.6-31.8); Chloride 99 mmol/L (96-109); Chol/HDL Ratio 2.19 Ratio; Globulin 2.2 g/dL (1.6-3.3); Glucose 163 mg/dL (70-110); LDL Cholesterol,Calculated 34.7 mg/dL (0.0-131.0); Potassium 4.5 mmol/L (3.5-5.5); Sodium 136 mmol/L (135-145); Total Bilirubin 0.4 mg/dL (0.3-1.2); Total Protein 6.5 g/dL (6.2-8.2); VLDL Calculation 16.32 mg/dL (5.00-40.00)
[2025-03-13 19:57] LABS: Microalbumin Creatinine Ratio <8 mg/g Cr (0-30)
== END | disposition home or self-care (01) ==
LOC: LABWHC1 10:11
PROVIDERS: ATTEND Internal Medicine Endocrinology, Diabetes & Metabolism
DX: E11.65 Type 2 diabetes mellitus with hyperglycemia (principal)
CPT/HCPCS: 36415; 80053; 80061; 82043; 82570; 83036; 84443

== ENCOUNTER → 2025-04-07 | Outpatient (CLI) | payer MEDICARE ==
[2025-04-07 19:58] LABS: HCT 40.0 % (39.6-50.0); HGB 12.8 g/dL (13.0-17.0); MCH 31.9 pg (27.0-32.0); MCHC 32.0 g/dL (32.0-37.0); MCV 99.8 FL (80.0-97.0); NRBC Per 100 WBC 0 X 10*3/uL (0.00-0.01); Platelet Count 265 X 10*3/uL (140-440); RBC 4.01 X 10*6/uL (4.40-5.60); RDW 13.4 % (11.5-14.5); WBC 5.67 X 10*3/uL (4.50-10.00)
[2025-04-07 20:08] LABS: Prostate Specific Antigen 0.64 ng/mL (0.000-6.500)
== END | disposition home or self-care (01) ==
LOC: LABWHC1 14:50
PROVIDERS: ATTEND Internal Medicine Endocrinology, Diabetes & Metabolism
DX: E11.65 Type 2 diabetes mellitus with hyperglycemia (principal)
CPT/HCPCS: 36415; 84153; 84403; 85027